=== PATIENT | female | born 2000 | race Caucasian/White ===

== ENCOUNTER 2024-09-28 11:49 | Inpatient (IN) ==
--- NOTE | 2024-09-28 12:21 | Emergency Department Note ---
History of Present Illness General Chief complaint: Leg Injury/Pain Stated complaint: NUMBNESS RT SIDE FROM FOOT TO GROIN Time Seen by Provider: 09/28/24 11:55 History of Present Illness Maximum Pain Intensity: 2 This is a 24-year-old female that presents to the emergency department via private vehicle with complaints of "right leg numbness". The patient states that last year she underwent L-spine discectomy. She has been doing overall well however does note for the past week and a half has intermittently been dragging her right foot/leg, is experiencing progressive right lower extremity numbness and weakness. She states that initially the numbness involved the foot and the right lower leg but now has progressed to involve much of the right leg over the past 24 hours. It extends from the right groin area all the way to the toes. She denies any recent trauma or injury. No fevers or chills. She does feel nauseated but there is no vomiting. No dysuria. The patient notes she was admitted here last month for low back pain and MRIs of the L-spine. She has had 2 MRIs of the L-spine at this facility last month. Most recent MRI dated 09/08/2024 showed Modic type I endplate degeneration at L4-L5 which had mildly improved compared to 08/22/2024 and also demonstrates reactive enhancement. There was also comment of large central disc extrusion at L4-L5 again seen unchanged from 08/22/2024 and decreased in size compared to 11/10/2023. Prior L4-L5 laminectomy noted. Home Medications Medication Instructions Recorded Confirmed Type levonorgestrel 21 mcg/24 hr (up to 21 mcg intrauterine CONTINOUS 11/10/23 09/28/24 History 8 years) 52 mg intrauterine device (Mirena) Allergies Allergy/AdvReac Type Severity Reaction Status Date / Time aspirin Allergy Severe Anaphylaxis Verified 09/28/24 15:56 NSAIDS (Non-Steroidal Allergy Severe Anaphylaxis Verified 09/28/24 15:56 Anti-Inflamma Past Med/Surg History Problem List (Updated 09/28/24 @ 17:05 by Mark Hall PA-C) Abnormal MRI, lumbar spine (Acute) Numbness of right lower extremity (Acute) Not currently (Acute) Medical History Lumbar disc disease Cauda equina syndrome Surgical History Hx of lumbar discectomy Social History Smoking Status: Never smoker Hx Alcohol Use: No Hx Substance Use: No Preferred Language: Icelandic Communication Ability: Effective Parking Technician Required: No Beliefs That Will Affect Care: None Current Living Situation: Alone Current Living Situation Comment: apartment Feels Safe at Home: Yes Assistive Devices: None Review of Systems A total of 10 systems reviewed and were otherwise negative Physical Exam Vital Signs Vital Signs - 24 hr 09/28/24 11:52 09/28/24 14:27 09/28/24 15:00 Temperature 36.7 C Temperature Source Temporal Artery Scan Pulse Rate 83 Pulse Rate [Finger] 62 68 Pulse Rhythm [Finger] Regular Pulse Strength [Finger] Normal Respiratory Rate 16 18 20 Respiratory Effort / Characteristics Non-Labored Spontaneous Non-Labored Spontaneous Respiratory Depth Normal Normal Respiratory Pattern Regular Blood Pressure 141/79 H Blood Pressure [Right Arm] 124/78 133/77 Blood Pressure Mean 99 Blood Pressure Mean [Right Arm] 93 95 Blood Pressure Position [Right Arm] Sitting Pulse Oximetry 98 97 97 Oxygen Delivery Method Room Air Room Air Room Air Sepsis Recent Fever Within 48 Hours No Sepsis New/Unexplained Change in Mental Status No Sepsis Action Taken by Nursing No Action Required 09/28/24 16:59 Temperature Temperature Source Pulse Rate Pulse Rate [Finger] 73 Pulse Rhythm [Finger] Pulse Strength [Finger] Respiratory Rate 16 Respiratory Effort / Characteristics Non-Labored Respiratory Depth Normal Respiratory Pattern Regular Blood Pressure Blood Pressure [Right Arm] 137/84 Blood Pressure Mean Blood Pressure Mean [Right Arm] 101 Blood Pressure Position [Right Arm] Sitting Pulse Oximetry 96 Oxygen Delivery Method Room Air Sepsis Recent Fever Within 48 Hours Sepsis New/Unexplained Change in Mental Status Sepsis Action Taken by Nursing VITAL SIGNS - Vital signs and nursing notes were reviewed. Stable and afebrile. GENERAL - 24-year-old female appearing her stated age who is in no acute distress. Communicates well with provider and answers questions appropriately. SKIN - Without rashes. HEAD - NC/AT. EYES - PERRL with EOMI bilaterally. Sclera anicteric. EARS - No deformities of external structures noted on gross examination bilaterally. NOSE - Midline and without cyanosis. No epistaxis or purulent drainage noted. MOUTH/OROPHARYNX - Without perioral cyanosis. NECK - Neck with FROM. No nuchal rigidity. LUNGS - CTA CARDIAC - RRR ABDOMEN - Abdominal contour normal without pulsations or visible masses. BS normoactive all four quadrants. No tenderness, palpable masses, hepatosplenomegaly, or ascites noted. EXTREMITIES - No clubbing or peripheral cyanosis. Right lower extremity strength diminished compared to the left. MUSCULOSKELETALthere is no reproducible tenderness overlying the C, T or L- spine or paraspinous musculature. There is a well-healed vertically oriented surgical incision overlying inferior L-spine. NEUROLOGIC - Cranial nerves II through XII grossly intact. Positive straight leg raise on the right. Negative on the left. Sensory intact to light touch throughout. No dropfoot. Patellar reflexes present but overall difficult to assess, no hyperreflexia. PSYCH -alert, oriented and pleasant on exam. Course Administered Medications Acetaminophen (Acetaminophen 325 Mg Tab) 650 mg PO QID [facility] Stop: 10/28/24 16:59 Last Admin: 09/28/24 16:55 Dose: 650 mg Documented By: NONA Pantoprazole Sodium (Pantoprazole 40 Mg Tab) 40 mg PO [facility] Stop: 10/28/24 16:44 Last Admin: 09/28/24 16:55 Dose: 40 mg Documented By: NONA Discontinued Medications Dexamethasone Sodium Phosphate (DexamethasonePf 10 Mg/Ml Vial) 10 mg IV NOW ONE Stop: 09/28/24 13:17 Last Admin: 09/28/24 13:26 Dose: 10 mg Documented By: [facility] Medical Decision Making Laboratory Data 09/28/24 12:32 09/28/24 12:32 Lab Results 09/28/24 09/28/24 Range/Units 12:32 12:38 WBC 7.71 (4.8-10.8) K/ul RBC 4.65 (4.20-5.40) M/uL Hgb 14.2 (12.0-16.0) g/dl Hct 42.2 (37.0-47.0) % MCV 90.8 (80.0-100.0) fL MCH 30.5 (25.0-34.0) pg MCHC 33.6 (32.0-36.0) g/dL RDW Std Deviation 44.1 (36.4-46.3) fL RDW Coeff of Tamar 13.2 (11.5-14.5) % Plt Count 302 (130-400) K/uL MPV 10.1 (9.4-12.4) fL Immature Gran % (Auto) 0.4 % Neut % (Auto) 68.0 % Lymph % (Auto) 21.3 % Wolfe % (Auto) 7.9 % Eos % (Auto) 1.9 % Baso % (Auto) 0.5 % Neut # (Auto) 5.24 (1.40-6.50) K/uL Lymph # (Auto) 1.64 (1.20-3.40) K/uL Wolfe # (Auto) 0.61 H (0.11-0.59) K/uL Eos # (Auto) 0.15 (0.00-0.50) K/uL Baso # (Auto) 0.04 (0.00-0.20) K/uL Immature Gran # (Auto) 0.03 (0.01-0.20) K/uL Sodium 140 (136-145) mmol/L Potassium 4.2 (3.5-5.1) mmol/L Chloride 105 (98-107) mmol/L Carbon Dioxide 27 (21-32) mmol/L Anion Gap 8 (3-11) BUN 23 (6-23) mg/dl Creatinine 0.57 L (0.6-1.2) mg/dl Est Cr Clr Drug Dosing 173.5 ml/min eGFR 130.87 BUN/Creatinine Ratio 40.4 H (10-20) Glucose 94 (70-99(Fasting)) mg/dl Calcium 9.4 (8.6-10.3) mg/dl Total Bilirubin 0.6 (0.2-1.0) mg/dl AST 18 (13-39) U/L ALT 19 (7-52) U/L Alkaline Phosphatase 50 (34-104) U/L Total Protein 7.5 (6.0-8.3) gm/dl Albumin 4.5 (3.4-5.0) gm/dl Globulin 3.0 (2.5-4.0) gm/dl Albumin/Globulin Ratio 1.5 (0.9-2) HCG, Qual Negative (Negative) Urine Color Yellow Urine Appearance Clear (Clear) Urine pH 6.0 (4.5-7.5) Ur Specific [place] 1.027 (1.000-1.030) Urine Protein Negative (Negative) Urine Glucose (UA) Negative (Negative) Urine Ketones Negative (Negative) Urine Blood Trace H (Negative) Urine Nitrite Negative (Negative) Urine Bilirubin Negative (Negative) Urine Urobilinogen Negative (Negative) Ur Leukocyte Esterase Negative (Negative) Urine WBC (Auto) 0-5 (0-5) /hpf Urine RBC (Auto) 0-2 (0-2) /hpf U Hyaline Cast (Auto) 0-2 (0-2) /lpf U Epithel Cells (Auto) 0-2 (0-2) /hpf Urine Bacteria (Auto) None Seen (None Seen) Urine Comment Imaging Data Radiologist's Impression: Lumbar Spine MRI 09/28/24 13:41 Lumbar spine MRI without IV contrast History: Back pain. Right lower extremity numbness and weakness Comparison: September 06, 2024 Technique: Sagittal T1-weighted, sagittal STIR, 3D volumetric axial and sagittal reconstructed T2-weighted images of the lumbar spine were obtained without intravenous contrast. Findings: There are 5 lumbar-type vertebrae assumed for the purposes of this dictation. The tip of the conus medullaris is at T12-L1. The lumbar alignment is normal. The vertebral body heights are normal. Redemonstrated Modic type I endplate degeneration at L4-L5. The visualized spinal cord and cauda equina are normal. No significant neuroforaminal or spinal canal stenosis at L1-2, L2-3, or L3-4. At L4-5, there is again mild intervertebral disc space narrowing and spondylotic spurring redemonstrated. Disc desiccation with circumferential annular disc bulge. Posterior annular fissure with large central disc extrusion redemonstrated has just slightly enlarged from the prior. However, the extradural space demonstrates significant further expansion into the spinal canal about the caudal aspect of the disc extrusion. This results in increased mass effect on the descending nerve roots, namely that of the right L5, as well as likely the S1 nerve roots. Minimal narrowing of the inferior neural foramen again seen along with mild narrowing of the lateral recesses. At L5-S1, there is again mild intervertebral disc space narrowing, with spondylotic spurring with small circumferential annular disc bulge/disc osteophyte complex which is eccentric to the left lateral recess and left neural foramen. No significant central canal or foraminal narrowing. IMPRESSION: The prominent right deviated disc extrusion at L4-5, with caudal extension is just slightly increased in size, however there is significant increase in expansion of the associated extradural space caudal to the area of disc extrusion, likely related to accumulation of reactive fluid and debris from disc material. This further expands into the spinal canal, with mass effect on the descending right sided nerve roots, namely that of L5 and S1. Electronically signed by Mode Ayon 09-28-2024 3:20 PM MDM Narrative Patient was seen and evaluated as above in room D03b. Review was performed of triage nursing notes and vital signs. I did review pertinent previous visits and patient history. After obtaining a thorough history and physical examination the above work up was performed. Patient presents to us today for evaluation of right leg numbness. On my assessment she is able to stand, axial load and ambulate independently. The patient does have intact patellar reflexes. The patient subjectively notes intermittently she has been dragging the right leg but on examination there is no active dragging of the leg. There is no evidence of dropfoot at this time. The patient does have some decreased strength on the right but only mildly diminished compared to the left. She is sensory intact light touch throughout the right lower extremity without sensation deficit. She has a benign abdomen. There is no back pain. Patellar reflexes are present. No hyperreflexia. Per review of the EMR it does appear the patient was admitted October of last year and ultimately underwent L-spine surgery for cauda equina syndrome/herniated nucleus pulposus at L4-L5. I did review the patient's 2 recent MRIs as stated last month. Patient does have a history of L-spine surgery last year. The patient does follow with Dr. Velasco's spine team. 12:35 PMI spoke with Vishal medley PA-C regarding the patient. We discusssed steroids and we agreed to IV Decadron here x 1, Medrol Dosepak and discussed plan for follow-up with pain management and for the patient to call the spine office to follow-up as well. I did obtain laboratory studies here. There is no leukocytosis or concerning anemia. No emergent metabolic disturbance. There is elevation of the BUN/creatinine ratio at 40. No evidence of kidney failure. hCG negative. Urinalysis does not suggest infection. [id number] did recommend rectal examination to assess rectal tone in the setting of the patient's history and symptoms as listed above. Verbal consent was obtained and I reviewed benefit versus risk of rectal exam with the patient. Patient gave verbal consent to proceed. Dagmar Meraz RN present at bedside. Rectal tone intact. No hemorrhoids. No complications. 1340-I discussed imaging options with the patient. Although she has had 2 MRIs as of recent, I did consider repeat MRI with the patient now noting new onset of progressive right lower extremity weakness, numbness and intermittently dragging the right leg per patient. Patient does desire MRI of the L-spine. Patient also notes that although simple short distance walked around a problem, any longer walks she does feel unsteady on the feet. Postvoid residual assessed and 3 mL noted. No concerning retention at this time MRI results are as above. There is comment that the disc just slightly increased in size however significant increase in expansion of the associated extradural space caudal to the area of disc extrusion, likely due to accumulation of reactive fluid and debris from disc material per radiologist. This further expands in the spinal canal, with mass effect on the descending right nerve roots namely that of L5 and S1 which does fit with the patient's presentation today. Although she did have spinal injection recently, I do not suspect any complications with the injection. The patient does not endorse any infectious symptoms. I further discussed the case with BREANNA Rodgers at 1601. We discussed the patient's exam and history again and also imaging today. Plan at this time will be medicine admit, orthopedic consult and potential pain consult. We discussed that she may have to be steroid doses total. Such as 8 mg and 8mg of dexamethasone. She has already had one, 10mg dose here today. At this time I do believe that further evaluation and management in the inpatient setting is warranted. Case discussed with hospitalist service. Please refer to further documentation regarding her stay. GCS: 15 In the evaluation and treatment of this patient the following differential diagnosis entertained: Fracture, dislocation, subluxation, cauda equina syndrome, AAA, diverticulitis, appendicitis, torsion, osteomyelitis, piriformis syndrome, strain, sprain, among others. Impression & Plan Numbness of right lower extremity, Abnormal MRI, lumbar spine Discharge Plan Visit Data Chief Complaint: Leg Injury/Pain Stated Complaint: NUMBNESS RT SIDE FROM FOOT TO GROIN ED Provider: Tegan Cisse ED Midlevel Provider: Mark Hall Discharge Problem: Numbness of right lower extremity, Abnormal MRI, lumbar spine Patient Disposition: Admitted As Inpatient Condition: Good Forms Stand Alone Forms: [facility] epicurio [facility] Prescriptions Prescriptions: No Action Mirena 21 mcg/24 hr (8 yrs) 52 mg Intrauterine Device 21 mcg intrauterine CONTINOUS Referrals Referrals: Dinesh Velasco DO [Primary Care Provider] -
[2024-09-28 12:45] LABS: Hematocrit (blood only) 42.2 % (37.0-47.0); Hemoglobin 14.2 g/dl (12.0-16.0); Immature Granulocytes # (auto) 0.03 K/uL (0.01-0.20); Immature Granulocytes % (auto) 0.4 %; Mean Corpuscular Hemoglobin 30.5 pg (25.0-34.0); Mean Corpuscular Volume 90.8 fL (80.0-100.0); Platelet Count 302 K/uL (130-400); RDW Standard Deviation 44.1 fL (36.4-46.3); Red Blood Count 4.65 M/uL (4.20-5.40); White Blood Count 7.71 K/ul (4.8-10.8)
[2024-09-28 12:47] LABS: Appearance Urine Clear (Clear); Bacteria Urine Automated None Seen (None Seen); Cast Urine Automated 0-2 /lpf (0-2); Epithelial Cell Urine Auto 0-2 /hpf (0-2); Glucose Urine UA Negative (Negative); RBC Urine Automated 0-2 /hpf (0-2); WBC Urine Automated 0-5 /hpf (0-5)
[2024-09-28 13:00] LABS: Pregnancy Test, Serum Negative (Negative)
[2024-09-28 13:02] LABS: Alanine Aminotransferase 19.0 U/L (7-52); Albumin Globulin Ratio 1.5 (0.9-2); Alkaline Phosphatase 50.0 U/L (34-104); Anion Gap 8.0 (3-11); Bilirubin,Total 0.6 mg/dl (0.2-1.0); Blood Urea Nitrogen 23.0 mg/dl (6-23); Calcium 9.4 mg/dl (8.6-10.3); Carbon Dioxide 27.0 mmol/L (21-32); Chloride 105.0 mmol/L (98-107); Creatinine Clr Calc Pharmacy 173.5 ml/min; Globulin 3.0 gm/dl (2.5-4.0); Glucose 94.0 mg/dl (70-99(Fasting)); Potassium 4.2 mmol/L (3.5-5.1); Sodium 140.0 mmol/L (136-145); Total Protein 7.5 gm/dl (6.0-8.3)
[2024-09-28] MEDS: dexAMETHasone**PF** 10 MG/ML VIAL IV ONE (13:26)
--- NOTE | 2024-09-28 15:20 | Magnetic Resonance Report ---
Lumbar spine MRI without IV contrast History: Back pain. Right lower extremity numbness and weakness Comparison: September 06, 2024 Technique: Sagittal T1-weighted, sagittal STIR, 3D volumetric axial and sagittal reconstructed T2-weighted images of the lumbar spine were obtained without intravenous contrast. Findings: There are 5 lumbar-type vertebrae assumed for the purposes of this dictation. The tip of the conus medullaris is at T12-L1. The lumbar alignment is normal. The vertebral body heights are normal. Redemonstrated Modic type I endplate degeneration at L4-L5. The visualized spinal cord and cauda equina are normal. No significant neuroforaminal or spinal canal stenosis at L1-2, L2-3, or L3-4. At L4-5, there is again mild intervertebral disc space narrowing and spondylotic spurring redemonstrated. Disc desiccation with circumferential annular disc bulge. Posterior annular fissure with large central disc extrusion redemonstrated has just slightly enlarged from the prior. However, the extradural space demonstrates significant further expansion into the spinal canal about the caudal aspect of the disc extrusion. This results in increased mass effect on the descending nerve roots, namely that of the right L5, as well as likely the S1 nerve roots. Minimal narrowing of the inferior neural foramen again seen along with mild narrowing of the lateral recesses. At L5-S1, there is again mild intervertebral disc space narrowing, with spondylotic spurring with small circumferential annular disc bulge/disc osteophyte complex which is eccentric to the left lateral recess and left neural foramen. No significant central canal or foraminal narrowing. IMPRESSION: The prominent right deviated disc extrusion at L4-5, with caudal extension is just slightly increased in size, however there is significant increase in expansion of the associated extradural space caudal to the area of disc extrusion, likely related to accumulation of reactive fluid and debris from disc material. This further expands into the spinal canal, with mass effect on the descending right sided nerve roots, namely that of L5 and S1. Electronically signed by Mode Ayon 09-28-2024 3:20 PM
[2024-09-28] MEDS ORDERED: HYDROmorphone INJ 0.5 MG/0.5 ML SYR IV PRN (16:39)
[2024-09-28] MEDS: ACETAMINOPHEN 325 MG TAB PO SCH (16:55)
[2024-09-28] MEDS: dexAMETHasone 10 MG in SYRINGE 0 ML IV SCH (20:11)
[2024-09-28] MEDS ORDERED: DEXAMETHASONE SOD INJ 4 MG/ML VIAL IV SCH (21:00)
--- NOTE | 2024-09-28 22:38 | History & Physical Report ---
Date of Service September 28, 2024 Assessment & Plan (1) Recurrent herniation of lumbar disc: Plan: Admit to medical for pain control. WIll consult ortho spine and pain management. Discussed with ortho spine will keep patient on a diet for now. WIll place on narcotics, tylenol and steroids. PPI for GI prophylaxis. Admission and Anticipated Discharge Date Admission Date: September 28, 2024 History of Present Illness Chief Complaint: back pain Primary Care Provider: Dinesh Velasco DO 24-year-old female PMHx cauda equina syndrome who presents for acute worsening of back pain with associatedright leg numbnessfor past 10 days. States that October 2023 she had a discectomy because she was having significant back pain that required intervention. Patient was recently discharged from the hospital in August for similar symptoms with steroid taper and injections. With plan to do surgery if above plna does not work. Patient reports that symptoms have not improved. Of note, 2 MRIs of the L-spine were completed at this facility last month. MRI dated 09/08/2024 showed Modic type I endplate degeneration at L4-L5 which had mildly improved compared to 08/22/2024 and also demonstrated reactive enhancement. There was also comment of large central disc extrusion at L4-L5 again seen unchanged from 08/22/2024 and decreased in size compared to 11/10/2023. Prior L4- L5 laminectomy noted. Allergies Allergy/AdvReac Type Severity Reaction Status Date / Time aspirin Allergy Severe Anaphylaxis Verified 09/28/24 15:56 NSAIDS (Non-Steroidal Allergy Severe Anaphylaxis Verified 09/28/24 15:56 Anti-Inflamma Home Medications Medication Instructions Recorded Confirmed Type levonorgestrel 21 mcg/24 hr (up to 21 mcg intrauterine CONTINOUS 11/10/23 09/28/24 History 8 years) 52 mg intrauterine device (Mirena) Past Med/Surg History Problem List Recurrent herniation of lumbar disc Abnormal MRI, lumbar spine (Acute) Numbness of right lower extremity (Acute) Not currently (Acute) Medical History Opioid-induced constipation Acute on chronic back pain Lumbar disc disease Cauda equina syndrome Social History Smoking Status: Never smoker Do You Dip or Chew Tobacco: No; Hx Alcohol Use: No Hx Substance Use: No Preferred Language: Malian Communication Ability: Effective Organ Tuner Electronic Required: No Beliefs That Will Affect Care: None Current Living Situation: Other Current Living Situation Comment: apartment Other Information That Helps Us Care for You: No Feels Safe at Home: Yes Safety Concerns: Feels Safe At This Time Assistive Devices: Glasses Review of Systems Constitutional: no fever and no body aches Eyes: no blind spots Ear, Nose, Mouth, Throat: no ear pain Respiratory: no cough Cardiovascular: no chest pain Gastrointestinal: no abdominal pain Genitourinary: no dysuria Musculoskeletal: + back pain Integumentary: no acne Neurologic: + paresthesia Psychiatric: no behavioral changes Endocrine: no fatigue Hematologic / Lymphatic: no easy bleeding Allergy / Immunological: no GI upset with certain foods Physical Exam Constitutional: WD/WN, vitals as above Eyes: PERRL, conjunctivae normal, anicteric sclerae ENMT: external ear and nose normal, oropharynx normal Neck: trachea midline, no thyromegaly Respiratory: normal respiratory effort, lungs clear to auscultation Cardiovascular: RRR, no murmur, no edema Gastrointestinal (Abdomen): normal bowel sounds, soft, nontender, no hepatosplenomegaly Musculoskeletal: no cyanosis or clubbing, extremities motor strength 5/5 Skin: no rashes, warm and dry Neurologic: PERRL, EOMI, accommodation nl, no face palsy, no dysarthria Psychiatric: A+Ox3, euthymic affect Lymphatic: no cervical or axillary lymphadenopathy Results & Data Results & Data Vital Signs (Past 12 Hours) Vital Signs Temp Pulse Pulse Resp BP BP Pulse Ox 09/28/24 19:24 36.6 C 85 16 136/84 96 09/28/24 17:47 70 20 139/80 98 09/28/24 17:22 63 09/28/24 16:59 73 16 137/84 96 09/28/24 15:00 68 20 133/77 97 09/28/24 14:27 62 18 124/78 97 09/28/24 11:52 36.7 C 83 16 141/79 H 98 O2 Del Method 09/28/24 19:24 Room Air 09/28/24 17:47 09/28/24 17:22 09/28/24 16:59 Room Air 09/28/24 15:00 Room Air 09/28/24 14:27 Room Air 09/28/24 11:52 Room Air PG Care Time/CCT Total # of Minutes Spent Total Time Spent with Patient: Total time spent is greater than 50% in coordination of care (as documented) at patient's floor/unit and/or counseling patient: Coding Level of Care Code 94439 INT INP/OBS CARE 3/75MIN Diagnoses Recurrent herniation of lumbar disc M51.26
[2024-09-29] MEDS: ONDANSETRON INJ 2 MG/ML 2 ML VIAL IV PRN (04:12)
--- NOTE | 2024-09-29 06:55 | Orthopedic Consultation ---
Date of Service September 29, 2024 Assessment & Plan (1) Recurrent herniation of lumbar disc: (2) Abnormal MRI, lumbar spine: (3) Numbness of right lower extremity: History of Present Illness Reason for Consultation: Low back pain, right leg radiculopathy, lumbar disc herniation. Requesting Physician: . Attending Physician: Jhony Lind 24-year-old female that presents to the emergency department September 28, 2024 via private vehicle with complaints of "right leg numbness". The patient states that last year she underwent L-spine discectomy. She has been doing overall well however does note for the past week and a half has intermittently been dragging her right foot/leg, is experiencing progressive right lower extremity numbness and weakness. She states that initially the numbness involved the foot and the right lower leg but now has progressed to involve much of the right leg over the past 24 hours. It extends from the right groin area all the way to the toes. She denies any recent trauma or injury. No fevers or chills. She does feel nauseated but there is no vomiting. No dysuria. The patient notes she was admitted here last month for low back pain and MRIs of the L-spine. She has had 2 MRIs of the L-spine at this facility last month. Most recent MRI dated 09/08/2024 showed Modic type I endplate degeneration at L4-L5 which had mildly improved compared to 08/22/2024 and also demonstrates reactive enhancement. There was also comment of large central disc extrusion at L4-L5 again seen unchanged from 08/22/2024 and decreased in size compared to 11/10/2023. Prior L4-L5 laminectomy noted. Exam reveals the patient to indicate pain in the lower lumbar spine but main symptoms are in right leg. She has intact strength in the left leg with what I thought was appropriate strength for EHL ankle plantar dorsiflexion knee extension, some pain in the low back with straight leg raise. Right leg reveals the patient to have EHL at least in the 4-4+ range on the right, similar for dorsiflexion and plantarflexion in the 5/5 range, knee extension is also at least 4-4+ but causes leg pain with trying to straighten the leg completely at the knee. Lumbar spine MRI without IV contrast September 28, 2024 History: Back pain. Right lower extremity numbness and weakness Comparison: September 06, 2024 Findings: There are 5 lumbar-type vertebrae assumed for the purposes of this dictation. The tip of the conus medullaris is at T12-L1. The lumbar alignment is normal. The vertebral body heights are normal. Redemonstrated Modic type I endplate degeneration at L4-L5. The visualized spinal cord and cauda equina are normal. No significant neuroforaminal or spinal canal stenosis at L1-2, L2-3, or L3-4. At L4-5, there is again mild intervertebral disc space narrowing and spondylotic spurring redemonstrated. Disc desiccation with circumferential annular disc bulge. Posterior annular fissure with large central disc extrusion redemonstrated has just slightly enlarged from the prior. However, the extradural space demonstrates significant further expansion into the spinal steve l about the caudal aspect of the disc extrusion. This results increased mass effect on the descending nerve roots, namely that of the right L5, as well as likely the S1 nerve roots. Minimal narrowing of the inferior neural foramen again seen along with mild narrowing of the lateral recesses. At L5-S1, there is again mild intervertebral disc space narrowing, with spondylotic spurring with small circumferential annular disc bulge/disc osteophyte complex which is eccentric to the left lateral recess and left neural foramen. No significant central canal or foraminal narrowing. IMPRESSION: The prominent right deviated disc extrusion at L4-5, with caudal extension is just slightly increased in size, however there is significant increase in expansion of the associated extradural space caudal to the area of disc extrusion, likely related to accumulation of reactive fluid and debris from disc material. This further expands into the spinal canal, with mass effect on the descending right sided nerve roots, namely that of L5 and S1. Above listed MRI was reviewed of the lumbar spine on September 28, 2024, is my separate interpretation, this reveals the patient to have the main findings at L4-5 where there is evidence of prior laminectomy, there is a central disc protrusion which is similar to the disc protrusion noted on the MRI from September 06, 2024, but now with an extruded fragment and some enlargement of the central fragment on the right side. There is notable loss of disc base height at the L4-5 level, of note is L5-S1 as loss of signal intensity, some loss of height and a central disc bulge but not causing any significant contact to the nerve roots. L3-4 and above are unremarkable. Radiographs of the lumbar spine from August 22, 2024 reveal the patient to have notable loss of height and loss of lordosis at the L4-5 level. Impression: L4-5 level status post prior L4-5 lumbar discectomy and decompression for cauda equina syndrome from November 10, 2023, now with recurrent disc herniation centrally into the right at L4-5, some additional findings at the L5-S1 level relative to degenerative changes. Plan: Today I discussed with the patient the nature of the disc herniation and the symptoms that she is having, there has been some limited improvement with appropriate medications, patient does have active motor in the right lower extremity. I related the patient that my recommendations are that any subsequent surgery would involve removal of the fragment and fusion at that level as I do not think it would an option of just doing a discectomy maintaining stability at this level. The patient had a prior surgery working with Dr. Velasco and recently had been in the hospital a month ago for similar symptoms, she responded very well to a epidural injection by Dr. Snyder on August 26, 2024 doing quite well until this recent flareup over the last week and a half. The patient expressed interest in discussing her situation with Dr. Velasco. Patient works as a photographer model I did relate she would be limited in her activities until this is addressed surgically, she was in agreement with this plan. Allergies Allergy/AdvReac Type Severity Reaction Status Date / Time aspirin Allergy Severe Anaphylaxis Verified 09/28/24 15:56 NSAIDS (Non-Steroidal Allergy Severe Anaphylaxis Verified 09/28/24 15:56 Anti-Inflamma Home Medications Medication Instructions Recorded Confirmed Type levonorgestrel 21 mcg/24 hr (up to 21 mcg intrauterine CONTINOUS 11/10/23 09/28/24 History 8 years) 52 mg intrauterine device (Mirena) Past Med/Surg History Problem List (Updated 09/29/24 @ 07:16 by Eduardo Jauregui MD) Recurrent herniation of lumbar disc Abnormal MRI, lumbar spine (Acute) Numbness of right lower extremity (Acute) Not currently (Acute) Medical History Lumbar disc disease Cauda equina syndrome Surgical History Hx of lumbar discectomy Social History Smoking Status: Never smoker Do You Dip or Chew Tobacco: No; Hx Alcohol Use: No Hx Substance Use: No Preferred Language: Thai Communication Ability: Effective Supervisor Operations Required: No Beliefs That Will Affect Care: None Current Living Situation: Other Current Living Situation Comment: apartment Other Information That Helps Us Care for You: No Feels Safe at Home: Yes Safety Concerns: Feels Safe At This Time Assistive Devices: Glasses Review of Systems All systems reviewed & are unremarkable except as noted in HPI & below. Physical Exam . Results & Data Results & Data Laboratory Results . Diagnostic Findings . PG Care Time/CCT Total # of Minutes Spent Total Time Spent with Patient: Total time spent is greater than 50% in coordination of care (as documented) at patient's floor/unit and/or counseling patient: Coding Level of Care Code 11382 IN/OBS CONSULT LVL 4,60M Diagnoses Recurrent herniation of lumbar disc M51.26 Abnormal MRI, lumbar spine R93.7 Numbness of right lower extremity R20.0
--- NOTE | 2024-09-29 09:50 | Orthopedic Consultation ---
Date of Consultation September 29, 2024 Assessment & Plan (1) Recurrent herniation of lumbar disc: Assessment recurrent disc herniation L4-L5 with radiculopathy and progressive neurologic deficit. Plan at this time and lengthy discussion today with the patient and her family reviewing MRI imaging and clinical course. At this time she demonstrates acute on chronic disc herniation L4-L5 with Modic disease. We have attempted a course of injections but she continues to have issues now with recurrent disc herniation. In light of her presentation neurologic deficit and history of it is reasonable to consider surgical invention. Would require a revision decompression and fusion L4-L5. Risk benefits pros cons and alternatives in detail. This time she would like to surgery. Will make her n.p.o. after midnight and plan for surgery tomorrow. History of Present Illness Reason for Consultation: Back right leg pain Attending Physician: Jhony Lind History of Present Illness This is a 24-year-old female well-known to me the presents with a decline in status over the past several days. She does have a history of a previous decompression for cauda equina syndrome at L4-L5. She has had recurrent disc protrusion at this level and has been undergoing therapy and epidural injections. Unfortunately symptoms have returned to involve predominantly the right lower extremity. She has significant back pain rating of the right buttock posterior lateral thigh down into the foot. She notes breakaway weakness to the right leg. Allergies Allergy/AdvReac Type Severity Reaction Status Date / Time aspirin Allergy Severe Anaphylaxis Verified 09/28/24 15:56 NSAIDS (Non-Steroidal Allergy Severe Anaphylaxis Verified 09/28/24 15:56 Anti-Inflamma Home Medications Medication Instructions Recorded Confirmed Type levonorgestrel 21 mcg/24 hr (up to 21 mcg intrauterine CONTINOUS 11/10/23 09/28/24 History 8 years) 52 mg intrauterine device (Mirena) Patient History Medical History Opioid-induced constipation Acute on chronic back pain Lumbar disc disease Cauda equina syndrome Social History Smoking Status: Never smoker Do You Dip or Chew Tobacco: No; Hx Alcohol Use: No Hx Substance Use: No Preferred Language: Nauruan Communication Ability: Effective Binding Machine Operator Required: No Beliefs That Will Affect Care: None Current Living Situation: Other Current Living Situation Comment: apartment Other Information That Helps Us Care for You: No Feels Safe at Home: Yes Safety Concerns: Feels Safe At This Time Assistive Devices: Glasses Physical Exam Physical Exam: On exam she does exhibit strength deficits to the right lower extremity with dorsiflexion extensor houses longus. She is at 5 or 5 strength in left lower extremity. There is marked tension signs with straight leg raising on the right with sensory deficits. Deep and reflexes diminished. Results & Data Vital Signs (Past 12 Hours) Vital Signs Temp Pulse Resp BP Pulse Ox O2 Del Method 09/29/24 07:08 36.6 C 62 16 131/75 99 Room Air
[2024-09-29 10:45] LABS: Hematocrit (blood only) 43.3 % (37.0-47.0); Hemoglobin 14.8 g/dl (12.0-16.0); Mean Corpuscular Hemoglobin 30.2 pg (25.0-34.0); Mean Corpuscular Volume 88.4 fL (80.0-100.0); Platelet Count 351 K/uL (130-400); RDW Standard Deviation 42.1 fL (36.4-46.3); Red Blood Count 4.90 M/uL (4.20-5.40); White Blood Count 14.90 K/ul (4.8-10.8)
[2024-09-29 11:01] LABS: Anion Gap 9.0 (3-11); Blood Urea Nitrogen 14.0 mg/dl (6-23); Calcium 9.5 mg/dl (8.6-10.3); Carbon Dioxide 23.0 mmol/L (21-32); Chloride 103.0 mmol/L (98-107); Creatinine Clr Calc Pharmacy 167.6 ml/min; Glucose 206.0 mg/dl (70-99(Fasting)); Potassium 3.7 mmol/L (3.5-5.1); Sodium 135.0 mmol/L (136-145)
[2024-09-29 11:10] LABS: Immature Granulocytes # (auto) 0.09 K/uL (0.01-0.20); Immature Granulocytes % (auto) 0.6 %
--- NOTE | 2024-09-29 12:24 | Pain Management Consultation ---
Date of Consultation September 29, 2024 Assessment & Plan (1) Recurrent herniation of lumbar disc: Pt planned for OR tomorrow with Dr. Velasco. Please reconsult should pain mgt services be requested. thank you History of Present Illness Attending Physician: Jhony Lind Allergies Allergy/AdvReac Type Severity Reaction Status Date / Time aspirin Allergy Severe Anaphylaxis Verified 09/28/24 15:56 NSAIDS (Non-Steroidal Allergy Severe Anaphylaxis Verified 09/28/24 15:56 Anti-Inflamma Home Medications Medication Instructions Recorded Confirmed Type levonorgestrel 21 mcg/24 hr (up to 21 mcg intrauterine CONTINOUS 11/10/23 09/28/24 History 8 years) 52 mg intrauterine device (Mirena) Patient History Medical History Opioid-induced constipation Acute on chronic back pain Lumbar disc disease Cauda equina syndrome Social History Smoking Status: Never smoker Do You Dip or Chew Tobacco: No; Hx Alcohol Use: No Hx Substance Use: No Preferred Language: Indian Communication Ability: Effective Lockstitch Topstitcher Required: No Beliefs That Will Affect Care: None Current Living Situation: Other Current Living Situation Comment: apartment Other Information That Helps Us Care for You: No Feels Safe at Home: Yes Safety Concerns: Feels Safe At This Time Assistive Devices: None
--- NOTE | 2024-09-29 22:45 | Communication Note ---
Date of Service: September 29, 2024 Orthopedic Spine service will assume primary management of this case. Patient is medically stable with no active medical issues requiring hospitalist involvement at this time. Hospitalist service will sign off.
--- NOTE | 2024-09-30 13:10 | History & Physical Bridge Note ---
Date of Service September 30, 2024 History & Physical Bridge Note I have examined the patient, reviewed the History & Physical and in the interval since the performance of the History & Physical I have noted the following changes of clinical significance: no changes noted patient has severe right leg pain that has been quite progressive over the past several months and now intolerable in nature. She has evidence of an acute on chronic disc herniation at L4-L5. We have attempted to manage this nonoperatively for several months including a course of injections that has failed. She now has significant pain requiring IV steroids and narcotic medications to control her symptoms. She is markedly limited with her ability to stand and ambulate secondary to her radiculopathy. To prevent permanent neurologic deficit and loss of function and recommending emergent decompression fusion L4-L5
[2024-09-30] MEDS ORDERED: PROPOFOL IV EMULSION 10 MG/ML 20 ML VIAL IV ONE ×3 (14:54→16:18)
[2024-09-30] MEDS ORDERED: LIDOCAINE 2% 2 ML VIAL/AMP(20MG/ML) INFIL ONE (14:54)
[2024-09-30] MEDS ORDERED: DEXAMETHASONE SOD INJ 4 MG/ML VIAL ONE (14:54)
[2024-09-30] MEDS ORDERED: ROCURONIUM BROMIDE 10 MG/ML 5 ML VIAL IV ONE ×2 (14:54→16:28)
[2024-09-30] MEDS ORDERED: ONDANSETRON INJ 2 MG/ML 2 ML VIAL ONE (14:54)
[2024-09-30] MEDS ORDERED: HYDROmorphone INJ 1 MG/ML SYRINGE IV PRN (15:19)
[2024-09-30] MEDS ORDERED: ATROPINE SULFATE 0.1 MG/ML 10ML SYR IV PRN (15:19)
--- NOTE | 2024-09-30 15:19 | Anesthesiology Consultation ---
Date of Service September 30, 2024 Assessment & Plan ASA ASA3 Proposed Anesthesia Anesthesia Type: General Risk / Benefits Reviewed With: PT / POA / Parent / Guardian, Accepts Plan and Informed Consent Obtained History Surgery Operation Date: 09/30/24 07:00 Proposed Procedures p L4-L5 Decompression and Fusion - Dinesh Velasco DO Height/Weight Height: 5 ft 6 in Weight: 90 kg Allergies Allergy/AdvReac Type Severity Reaction Status Date / Time aspirin Allergy Severe Anaphylaxis Verified 09/28/24 15:56 NSAIDS (Non-Steroidal Allergy Severe Anaphylaxis Verified 09/28/24 15:56 Anti-Inflamma Medications Home Medications Medication Instructions Recorded Confirmed Last Taken levonorgestrel 21 mcg/24 hr (up to 21 mcg intrauterine CONTINOUS 11/10/23 09/28/24 Unknown 8 years) 52 mg intrauterine device (Mirena) Active Medications Generic Name Dose Route Start Last Admin Trade Name Freq PRN Reason Stop Dose Admin Acetaminophen 650 mg 09/28/24 17:00 09/30/24 13:40 Acetaminophen 325 Mg Tab PO 10/28/24 16:59 Not Given QID MARGARITA Dexamethasone 10 mg/ Syringe 2.5 mls @ 1 mls/min 09/28/24 21:00 09/30/24 09:01 IV 10/28/24 20:59 1 mls/min BID MARGARITA Administration Ondansetron HCl 4 mg 09/29/24 03:51 09/30/24 09:04 Ondansetron Inj 2 Mg/Ml 2 Ml Vial IV 10/29/24 03:50 4 mg Q6H PRN Administration Nausea And Vomiting Pantoprazole Sodium 40 mg 09/28/24 16:45 09/30/24 09:01 Pantoprazole 40 Mg Tab PO 10/28/24 16:44 40 mg QAM MARGARITA Administration NPO Date Last Intake of Fluids: 09/29/24 Time Last Intake of Fluids: 23:59 Date Last Intake of Solids: 09/29/24 Time Last Intake of Solids: 19:00 Past Medical History Medical History Opioid-induced constipation Acute on chronic back pain Lumbar disc disease Cauda equina syndrome Exercise / Class Metabolic Activity II 4-5 Yardwork/Stairs/Walk up hill Past Anesthesia History No Hx of Anesthesia Complications and No Family Hx of Anesthesia Complications History of PONV No Hx of PONV and No Hx of Motion Sickness Social History Smoking Status: Never smoker Do You Dip or Chew Tobacco: No Hx Alcohol Use: No alcohol intake frequency: holidays/special occasions only Hx Substance Use: No substance use type: does not use Review of Systems denies fever/cough/ colds/ chest pain/ SOB/ SANIYA denies SANIYA Physical Exam Vital Signs Last Vital Signs Temp 36.9 C 09/30/24 14:35 Pulse 72 09/30/24 14:35 Resp 18 09/30/24 14:35 BP 141/75 H 09/30/24 14:35 Pulse Ox 98 09/30/24 14:35 O2 Del Method Room Air 09/30/24 14:35 ENMT Mouth: no TMJ abnormality and no dentition abnormality Thyromental Distance: > or= 3.5 Finger Breadths Mallampati Class: II Neck neck extension not limited Respiratory normal respiratory effort; no respiratory distress Auscultation: lungs clear to auscultation bilaterally Cardiovascular Rate/Rhythm: regular rate and regular rhythm Neurologic moves all extremities Psychiatric Orientation: alert and oriented x 3 Testing Laboratory Results 09/29/24 09:58 09/29/24 09:58 Urine Color Yellow 09/28/24 12:38 Urine Appearance Clear (Clear) 09/28/24 12:38 Urine pH 6.0 (4.5-7.5) 09/28/24 12:38 Ur Specific [place] 1.027 (1.000-1.030) 09/28/24 12:38 Urine Protein Negative (Negative) 09/28/24 12:38 Urine Glucose (UA) Negative (Negative) 09/28/24 12:38 Urine Ketones Negative (Negative) 09/28/24 12:38 Urine Nitrite Negative (Negative) 09/28/24 12:38 Ur Leukocyte Esterase Negative (Negative) 09/28/24 12:38 Urine WBC (Auto) 0-5 /hpf (0-5) 09/28/24 12:38 Urine RBC (Auto) 0-2 /hpf (0-2) 09/28/24 12:38 U Hyaline Cast (Auto) 0-2 /lpf (0-2) 09/28/24 12:38 U Epithel Cells (Auto) 0-2 /hpf (0-2) 09/28/24 12:38 Urine Bacteria (Auto) None Seen (None Seen) 09/28/24 12:38 Urine Test Negative (Negative) 09/30/24 07:20 Blood Type O Positive 09/30/24 06:16 Antibody Screen NEGATIVE 09/30/24 06:16 09/30/24 07:20 Urine Test Negative
[2024-09-30] MEDS ORDERED: MIDAZOLAM HCL 1 MG/ML 2ML VIAL ONE (15:48)
[2024-09-30] MEDS: BUPIVACAINE/EPINEPHRINE 0.25% 1:200,000 30 ML VIAL ONE (16:27)
[2024-09-30] MEDS: ceFAZolin 330 MG/ML 1 GM VIAL ONE (17:15)
[2024-09-30] MEDS ORDERED: SUGAMMADEX SODIUM 200 MG/2 ML VIAL IV ONE (17:16)
[2024-09-30] MEDS: FLOSEAL HEMOSTATIC MATRIX 10ML TOP ONE (17:17)
[2024-09-30] MEDS ORDERED: HYDROmorphone INJ 2 MG/ML SYR/VIAL ONE (17:27)
--- NOTE | 2024-09-30 17:30 | Operative Report ---
Post Operative Report Pre & Post Diagnosis Operation Date: 09/30/24 07:00 Pre-Op Diagnosis: #1 recurrent herniation of lumbar disc with radiculopathy Post-Op Diagnosis: Same I identified the patient and participated in the time-out.: Yes Procedure Operation Date: 09/30/24 07:00 Actual Procedures #1 revision decompression with bilateral medial facetectomies and foraminotomies and excision of herniated free fragment L4-L5. #2 posterior spinal fusion L4- L5. #3 placement posterior instrumentation L4-L5 using camber. #4 interbody fusion L4-L5 and #[address] Place of Spira 13 x 26 mm and L4 5P #6 placement locally harvested morselized autograft in the posterior gutters. #7 placement infuse collagen sponge combined with Koros in the posterior lateral gutters and os design interbody space. #8 application of versa wrap of the exposed dura. Surgeon Dinesh Velasco, Financial Accounting Manager Martha Blackmon Estimated Blood Loss 30 Findings Consistent with Post-Op Diagnosis Specimens None Indications This is a 24-year-old female that presents with the above-mentioned diagnosis. Patient has declined rapidly over the past several days has had progressive neurologic deficit weakness requiring IV narcotics and steroids to control her pain. Subsequently she is here for surgical intervention. Description of Procedure Patient was met with identified informed consent obtained. Patient was then taken to the operative suite underwent intubation placed in a prone position on the Matt table top of the Sampson frame. All bony prominences well-padded eyes inspected to ensure no external pressure placed upon them. This point the lumbar spine was prepped and draped in normal sterile fashion. Sharp dissection with the assistance of Bovie cautery performed down to and exposing the remaining lamina of L4 and the transverse processes of L4-L5 bilaterally. I then performed a revision complete laminectomy of L4 with bilateral medial facetectomies and foraminotomies. Identified a massive disc herniation on the right with caudal migration. The free fragment was removed and the area expl ored several times to ensure all fragments addressed. Pedicle screws were then placed in L4-L5 bilaterally with assistance of fluoroscopy and the process carlota placed. By way of the trans foraminal approach on the right and complete discectomy at the L4-L5 was performed. Endplates corrected to subcortical bleeding bone and a 13 x 26 mm spiral cage filled with os design bone graft tapped in position. The rods were then compressed locked into final position bilaterally. The transverse processes of L4-L5 burred to subcortical bleeding bone. Infuse collagen sponge, with Koros and local autograft placed in the posterior gutters. First wrap placed over the exposed dura. 15 round ARTEM drain inserted. The incision was then closed with 1 Vicryl in the fascia 2-0 Vicryl subcutaneously and 4-0 Monocryl for final skin closure. Steri-Strips sterile dressing placed. Patient waken taken PACU stable condition. Please note Martha Blackmon was present at the entire procedure involved the patient positioning complex portion of the surgery and final skin closure. I attest to the content of the Intraoperative Record and any orders documented therein. Any exceptions are noted below.
--- NOTE | 2024-09-30 18:06 | Anesthesiology Progress Note ---
Date of Service September 30, 2024 Anesthesia Post Procedure Vital Signs Vital Signs: Temp Pulse Pulse Resp BP Pulse Ox O2 Del Method 09/30/24 18:00 36.5 C 62 18 142/82 H 97 Room Air 09/30/24 17:50 83 16 130/77 98 Oxymask 09/30/24 17:40 36.6 C 93 H 12 165/101 H 97 Oxymask 09/30/24 14:35 36.9 C 72 18 141/75 H 98 Room Air 09/30/24 07:02 36.8 C 60 16 117/64 97 Room Air 09/29/24 20:09 36.8 C 64 12 111/70 97 Room Air O2 Flow Rate 09/30/24 18:00 09/30/24 17:50 2 09/30/24 17:40 6 09/30/24 14:35 09/30/24 07:02 09/29/24 20:09 Pain Intensity Right Leg: Pain Intensity: 2 Lower Back: Pain Intensity: 2 Transfer of Care Handoff Completed per policy Notes Mental Status: alert / awake / arousable and participated in evaluation Patient Amnestic to Procedure: Yes Nausea / Vomiting: adequately controlled Pain: adequately controlled Airway Patency, RR, SpO2: stable & adequate BP & HR: stable & adequate Hydration State: stable & adequate Anesthetic Complications: no major complications apparent and Pt Satisfied with anesthetic care
[2024-09-30] MEDS ORDERED: METOCLOPRAMIDE HCL INJ 5 MG/ML 2 ML VIAL IV PRN (18:19)
[2024-09-30] MEDS ORDERED: DO NOT ADMINISTER PNEUMOCOCCAL VACCINE PRN (18:19)
[2024-09-30] MEDS ORDERED: NALOXONE HCL 0.4 MG/1 ML VIAL/CARP IV PRN (18:19)
[2024-09-30] MEDS ORDERED: MAGNESIUM HYDROXIDE SUSP 30 ML UDC PO PRN (18:19)
[2024-09-30] MEDS ORDERED: diphenhydrAMINE Capsule 25 MG CAP PO PRN (18:19)
[2024-09-30] MEDS ORDERED: SOD PHOSPHATE/SOD BIPHOSPHATE ENEMA 132 ML BTL PR PRN (18:19)
[2024-09-30] MEDS ORDERED: DO NOT ADMINISTER FLU VACCINE PRN (18:19)
[2024-09-30] MEDS ORDERED: LORazepam 0.5 MG TAB PO PRN (18:19)
[2024-09-30] MEDS ORDERED: ALUMINUM/MAGNESIUM SUSP 30 ML UDC PO PRN (18:19)
[2024-09-30] MEDS ORDERED: FAMOTIDINE 20 MG TAB PO PRN (18:19)
[2024-09-30] MEDS ORDERED: ACETAMINOPHEN 1,000 MG/100 ML VIAL IV PRN (18:19)
[2024-09-30] MEDS: LACTATED RINGER'S 1,000 ML IV SCH (18:28)
[2024-09-30] MEDS: HYDROmorphone INJ 0.5 MG/0.5 ML SYR IV PRN (18:31)
[2024-09-30] MEDS: ONDANSETRON INJ 2 MG/ML 2 ML VIAL IV PRN ×2 (20:40→20:44)
[2024-09-30] MEDS: ONDANSETRON 4 MG OD TAB PO PRN (20:40)
[2024-09-30] MEDS: DOCUSATE SODIUM/SENNA 50/8.6MG TAB PO SCH (20:42)
[2024-10-01] MEDS: POLYETHYLENE (MIRALAX) 17 GM PACK PO SCH (06:27)
[2024-10-01 07:10] LABS: Hematocrit (blood only) 38.9 % (37.0-47.0); Hemoglobin 13.0 g/dl (12.0-16.0); Immature Granulocytes # (auto) 0.10 K/uL (0.01-0.20); Immature Granulocytes % (auto) 0.6 %; Mean Corpuscular Hemoglobin 30.4 pg (25.0-34.0); Mean Corpuscular Volume 91.1 fL (80.0-100.0); Platelet Count 314 K/uL (130-400); RDW Standard Deviation 44.8 fL (36.4-46.3); Red Blood Count 4.27 M/uL (4.20-5.40); White Blood Count 17.46 K/ul (4.8-10.8)
[2024-10-01 07:26] LABS: Anion Gap 4.0 (3-11); Blood Urea Nitrogen 12.0 mg/dl (6-23); Calcium 8.7 mg/dl (8.6-10.3); Carbon Dioxide 30.0 mmol/L (21-32); Chloride 103.0 mmol/L (98-107); Creatinine Clr Calc Pharmacy 173.5 ml/min; Glucose 110.0 mg/dl (70-99(Fasting)); Potassium 4.2 mmol/L (3.5-5.1); Sodium 137.0 mmol/L (136-145)
[2024-10-01] MEDS: dexAMETHasone 6 MG in SYRINGE 0 ML IV SCH (08:02)
[2024-10-01] MEDS: ACETAMINOPHEN 500 MG TAB PO PRN (08:02)
--- NOTE | 2024-10-01 08:11 | Fluoroscopy Report ---
FL lumbar spine 2-3V CLINICAL HISTORY: L4-L5 DECOMPRESSION AND FUSION COMPARISON STUDY: None FLUOROSCOPY TIME: 14 seconds FLUOROSCOPY IMAGES: 3 EXPOSURE DOSE: 13 mGy FINDINGS: Fluoroscopy was provided for lower lumbar fusion. IMPRESSION: Intraoperative fluoroscopy. ACT 112: Negative or not required by law. Electronically signed by: Rusty Chu M.D. 10/01/2024 8:09 AM
--- NOTE | 2024-10-01 09:29 | Orthopedic Progress Note ---
Date of Service October 01, 2024 Assessment & Plan (1) Recurrent herniation of lumbar disc: Plan: At this time we will initiate physical therapy monitor her ARTEM operatively discharge home in the next few days. Admission and Anticipated Discharge Date Admission Date: September 28, 2024 Subjective Patient's back pain is controlled. She is struggling with some lightheadedness. No leg pain. Physical Exam Physical Exam: Patient is currently in bed. Discussed active testing. Appears comfortable. Results & Data Vital Signs (Past 12 Hours) Vital Signs Temp Pulse Pulse Resp BP Pulse Ox O2 Del Method 10/01/24 07:35 36.7 C 66 17 121/74 96 Room Air 10/01/24 05:51 36.7 C 54 L 14 108/67 97 Room Air 09/30/24 23:48 36.9 C 60 20 115/72 98 Room Air
[2024-10-01] MEDS: PROMETHAZINE 12.5 MG/50.5 ML BAG IV PRN (11:06)
[2024-10-01] MEDS: HYDROmorphone INJ 1 MG/ML SYRINGE IV PRN (20:24)
--- NOTE | 2024-10-02 08:40 | Orthopedic Progress Note ---
Date of Service October 02, 2024 Assessment & Plan (1) Recurrent herniation of lumbar disc: Plan: Mariella is postoperative day 2 status post lumbar decompression and fusion of L4-5. Will continue with physical therapy today. Maintain ARTEM drain. Work on aggressive bowel regimen. DVT prophylaxis is in the form of teds and SCDs. Anticipate discharge home tomorrow Admission and Anticipated Discharge Date Admission Date: September 28, 2024 Subjective Mariella is postoperative day 2 status post lumbar decompression and fusion of L4-5. She is doing well. Has some numbness in the right leg but pain is resolved. Yesterday in physical therapy ambulate 160 feet. ARTEM drain output left shift is 80 cc. She is passing flatus but no bowel movement. No new complaints. Review of Systems Review of Systems: All systems reviewed & are unremarkable except as noted in HPI & below Physical Exam Physical Exam: She sitting in bed eating breakfast in no acute distress Alert and oriented x 3 lumbar dressing is clean dry and intact with functioning ARTEM drain Strength intact bilateral lower extremities calf soft and nontender bilaterally Results & Data Vital Signs (Past 12 Hours) Vital Signs Temp Pulse Resp BP Pulse Ox O2 Del Method 10/02/24 07:18 36.7 C 60 16 105/71 95 Room Air
[2024-10-03 08:03] VITALS: PULSE 60; RESP 18; TEMP 98.1; O2SAT 97
--- NOTE | 2024-10-03 10:28 | Discharge Summary ---
Date of Service October 03, 2024 Admission HPI Per Admitting Provider 24-year-old female PMHx cauda equina syndrome who presents for acute worsening of back pain with associatedright leg numbnessfor past 10 days. States that October 2023 she had a discectomy because she was having significant back pain that required intervention. Patient was recently discharged from the hospital in August for similar symptoms with steroid taper and injections. With plan to do surgery if above plna does not work. Patient reports that symptoms have not improved. Of note, 2 MRIs of the L-spine were completed at this facility last month. MRI dated 09/08/2024 showed Modic type I endplate degeneration at L4-L5 which had mildly improved compared to 08/22/2024 and also demonstrated reactive enhancement. There was also comment of large central disc extrusion at L4-L5 again seen unchanged from 08/22/2024 and decreased in size compared to 11/10/2023. Prior L4- L5 laminectomy noted. 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 Discharge Data Allergies Allergy/AdvReac Type Severity Reaction Status Date / Time aspirin Allergy Severe Anaphylaxis Verified 09/28/24 15:56 NSAIDS (Non-Steroidal Allergy Severe Anaphylaxis Verified 09/28/24 15:56 Anti-Inflamma Consultations 09/28/24 15:42 ED Decision to Admit Stat 09/28/24 16:21 Consult Orthopedic Spine Surgery Routine 09/29/24 08:19 Consult Pain Management Routine Procedures Performed Operation Date: 09/30/24 07:00 Actual Procedures p L4-L5 Decompression and Fusion(Not Applicable) - Dinesh Velasco DO Ordered Studies 09/28/24 13:41 MR lumbar spine wo con Stat 09/30/24 13:00 FL lumbar spine 2-3V Routine Hospital Course (1) Recurrent herniation of lumbar disc: Patient presents to the hospital with recurrent disc condition severe radiculopathy with progressive neurologic deficit. Sepsis she underwent urgent decompression and fusion. She tolerated it well. Taken orthopedic floor postoperative. She progressed appropriately throughout her stay. Improvement of her pain. ARTEM drain decreasing appropriately. Good strength testing. Subsidy discharged home. Discharge orders instructions from the chart for further review. Total Time Total Time Spent Total Time Spent (In Minutes): 20 minutes Discharge Plan Discharge Items Patient Disposition: Home - Self-Care Reason For Visit: BACK PAIN Discharge Diagnosis: Recurrent lumbar disc herniation with neurologic deficit Condition on Discharge: Good Activity: As commented below Non-emergency contact: Primary Care Provider Call non-emergency contact if: you have any medication questions Follow-up/Referrals: Dinesh Velasco DO [Primary Care Provider] - Diet: Regular Addtl Attending Provider Instructions: ACTIVITY RECOMMENDATIONS: SELF CARE INSTRUCTIONS AFTER THORACIC/LUMBAR FUSIONS 1. You may walk to your tolerance. It is good exercise for your legs and back. Expect some back and intermittent leg aches and pains. 2. You may perform "counter-top" level activities (make a sandwich, carlos with a project, etc.). 3. No bending or lifting of more than 10 pounds or back twisting of any nature (roll like a log when turning in bed). 4. You may ride in a car for 20-30 minutes at a time. No driving until after your first visit with your doctor. 5. Frequent changes of position and restricting sitting to 30 minutes at a time will help limit the amount of back spasms and stiffness you may experience. 6. You may discontinue the use of ambulatory aids (cane, crutches, etc.) once your strength and confidence allow. 7. You may supervisor screen making the shower and let water strike your incision when you arrive home at least once daily. Do not take a tub bath, sit in a hot tub or go into a swimming pool until after your first recheck in the office. 8. You may resume previous diet. SPECIAL CARE INSTRUCTIONS: VERY IMPORTANT TO READ AND REVIEW A. Your surgical incision has been closed with a cosmetic suture under the skin that will dissolve in about 6 weeks. In 14 days, you can use a pair of clean scissors and cut the suture that is left outside of the skin at the ends of your incision. 1. The small skin tapes can be removed 7 days after surgery if they have not fallen off by that point. 2. You may keep the wound open to air as much as possible to promote healing after post-op day number 5 unless told otherwise by your doctor. 3. If you think the wound looks like it is becoming infected (redness or worsening drainage) and/or you are experiencing fever, chill or worsening back pain and muscle spasms, contact the office so that we may evaluate you as soon as possible. B. Complications are uncommon, but please contact us if you have any signs or symptoms of: 1. wound infection (fever higher than 102.5 degrees F, redness, separation of wound, drainage, or increasing pain from the incision) 2. blood clots in legs (pain, swelling, redness and warmth in legs) 3. urinary tract infection (fever higher than 102.5 degrees F, burning upon urination or increased frequency of urination) 4. nerve problems (inability to walk on your toes or heels, numbness, loss of bowel or bladder control) 5. any other symptoms that concern you C. Please call the office at if you have any concerns or questions about your operation or recovery. D. No smoking! Smoking drastically decreases the chance of a solid fusion. E. Do not take any anti-inflammatory medications (Indocin, Advil, Motrin, Aspirin, Naprosyn, etc.) as these may inhibit the chance of a solid fusion. Tylenol is okay to take for pain. MANAGING PAIN AFTER SPINAL SURGERY 1. Narcotic medication is intended for short-term use and will be provided for surgical pain. Surgical pain usually lasts for a period of 4-6 weeks. Narcotic medication includes Percocet, Vicodin, Darvocet, Tylenol #3 or Lortab. 2. Longer-term pain is more appropriately treated with non-narcotic medication such as Tylenol ES. 3. Muscle spasm is not appropriately treated with narcotics. Muscle relaxers such as Soma, Flexeril or Skelaxin can be used along with Tylenol ES. 4. Remember that we all live with some "aches and pains". This is not unusual or uncommon after an injury or as we get older. a. Back pain is expected and may include muscle spasms for 4 to 6 weeks after surgery. The pain should gradually improve. If the pain worsens for no apparent reason, please contact the office. b. Intermittent leg pain may also be experienced and should not be concerned about unless it worsens for no apparent reason. If so, please contact the office. 5. We will provide appropriate medication within the normal guidelines of their prescribed use. We will also be very cautious and aware of potential abuse and extended duration of patients' medication needs. a. Pain medications are for your comfort and to assist with sleep and rest so that the tissue can heal. They are not provided in order to return to normal activity and should not be used through the day. To do so or worsening pain at night can result from ongoing tissue damage and development of tolerance to the prescribed medicine. 6. Please allow 2-3 days to process refills. Prescriptions will not be mailed but must be picked up at the office. FOLLOW UP VISIT: Keep your scheduled follow-up appointment. Any questions, please call the office at . Pending Studies at Discharge: No Stand-Alone Forms: My [facility], Smoking Cessation Medications and DC Order Prescriptions: New tramadol 50 mg tablet 50 mg PO Q6H PRN (Reason: pain, moderate) Qty: 30 0RF oxycodone 5 mg tablet 5 mg PO Q6H PRN (Reason: pain) Qty: 30 0RF Continued Mirena 21 mcg/24 hr (8 yrs) 52 mg Intrauterine Device 21 mcg intrauterine CONTINOUS Discharge Orders: Discharge Order (Routine); Ordered 10/03/24 Ordered By: Dinesh Velasco Admission Data Admit Date/Time: 09/28/24 16:24 Attending Provider: Dinesh Velasco Admit Provider: Jhony Lind Primary Care Provider: Dinesh Velasco Other Providers: Gem Cisneros; Dinesh Velasco; Francisco Enriquez; Lise Ellsworth; Jared Lund; Oscar Zavaleta; Evi Akhtar
[2024-10-03 10:36] VITALS: BP 105/71
== END 2024-10-03 12:43 | disposition home or self-care (01) | DRG 402 ==
LOC: ED 11:49 → SUATTDRO 16:24 → 3W 16:24

== ENCOUNTER 2024-11-17 02:16 | Observation (INO) ==
[2024-11-17] MEDS: HYDROmorphone INJ 0.5 MG/0.5 ML SYR IV PRN ×2 (02:51→10:27)
[2024-11-17 02:53] LABS: Hematocrit (blood only) 39.9 % (37.0-47.0); Hemoglobin 13.5 g/dl (12.0-16.0); Immature Granulocytes # (auto) 0.04 K/uL (0.01-0.20); Immature Granulocytes % (auto) 0.3 %; Mean Corpuscular Hemoglobin 30.3 pg (25.0-34.0); Mean Corpuscular Volume 89.5 fL (80.0-100.0); Platelet Count 301 K/uL (130-400); RDW Standard Deviation 41.8 fL (36.4-46.3); Red Blood Count 4.46 M/uL (4.20-5.40); White Blood Count 11.50 K/ul (4.8-10.8)
--- NOTE | 2024-11-17 02:53 | Emergency Department Note ---
History of Present Illness General Chief complaint: Back Injury/Pain Stated complaint: BACK PAIN INTO LEG Time Seen by Provider: 11/17/24 02:33 History of Present Illness Maximum Pain Intensity: 9 24-year-old female PMHx cauda equina syndrome who presents for acute worsening of back pain with associated bilateral leg pain and weakness for the past few days. Patient's had back surgery a few months ago by Dr. Velasco. Patient tried tramadol with no improvement of symptoms. She cannot take NSAIDs. Patient denies loss of bowel bladder control, saddle esthesia, fever, chills, IV drug use. She states she cannot tolerate the pain. She states Dilaudid works best for her. Home Medications Medication Instructions Recorded Confirmed Type levonorgestrel 21 mcg/24 hr (up to 21 mcg intrauterine CONTINOUS 11/10/23 11/17/24 History 8 years) 52 mg intrauterine device (Mirena) tramadol 50 mg tablet 50 mg PO Q6H PRN pain, moderate 10/01/24 11/17/24 Rx #30 tabs Allergies Allergy/AdvReac Type Severity Reaction Status Date / Time aspirin Allergy Severe Anaphylaxis Verified 11/17/24 02:55 NSAIDS (Non-Steroidal Allergy Severe Anaphylaxis Verified 11/17/24 02:55 Anti-Inflamma Past Med/Surg History Problem List (Updated 11/17/24 @ 05:48 by Hollie Jim PA-C) Intractable low back pain (Acute) Recurrent herniation of lumbar disc Abnormal MRI, lumbar spine (Acute) Numbness of right lower extremity (Acute) Not currently (Acute) Medical History Opioid-induced constipation Acute on chronic back pain Lumbar disc disease Cauda equina syndrome Social History Smoking Status: Never smoker Do You Dip or Chew Tobacco: No; Hx Alcohol Use: No Hx Substance Use: No Preferred Language: Bengali Communication Ability: Effective Distance Education Director Required: No Beliefs That Will Affect Care: None Current Living Situation: Other Current Living Situation Comment: apartment Feels Safe at Home: Yes Assistive Devices: None Review of Systems A total of 10 systems reviewed and were otherwise negative Physical Exam Vital Signs Vital Signs - 24 hr 11/17/24 02:20 11/17/24 02:41 11/17/24 02:53 Temperature 36.4 C L Temperature Source Temporal Artery Scan Pulse Rate 110 H 88 Pulse Rate [Apical] Respiratory Rate 16 Blood Pressure 142/82 H Blood Pressure [Right Arm] Blood Pressure Mean 102 Blood Pressure Mean [Right Arm] Pulse Oximetry 98 96 Oxygen Delivery Method Room Air Room Air Sepsis Recent Fever Within 48 Hours No Sepsis New/Unexplained Change in Mental Status No Sepsis Action Taken by Nursing No Action Required 11/17/24 04:16 11/17/24 04:36 11/17/24 05:00 Temperature Temperature Source Pulse Rate Pulse Rate [Apical] 75 62 65 Respiratory Rate 16 16 18 Blood Pressure Blood Pressure [Right Arm] 125/74 112/63 125/67 Blood Pressure Mean Blood Pressure Mean [Right Arm] 91 79 86 Pulse Oximetry 97 96 98 Oxygen Delivery Method Room Air Room Air Room Air Sepsis Recent Fever Within 48 Hours Sepsis New/Unexplained Change in Mental Status Sepsis Action Taken by Nursing VITALS: Vitals are noted on the nurse's note and reviewed by myself. Vital signs stable. GENERAL: White female, in no acute distress, nondiaphoretic, well-developed well-nourished. SKIN: Capillary reflex less than 2 seconds. HEENT: Normocephalic. PERRLA. EOMI. Nares patent. Mucous membranes moist. Neck is supple without nuchal rigidity. HEART: Regular rate and rhythm LUNGS: Clear to auscultation bilaterally without wheezes, rales or rhonchi. No retractions or accessory muscle use. ABDOMEN: Positive bowel sounds x 4. Normal tympanic percussion. Soft, nontender, without masses or organomegaly. Simmons sign negative. No guarding or rebound tenderness. no CVA tenderness MUSCULOSKELETAL: No gross musculoskeletal defects. No thoracic or lumbar tenderness. Positive straight leg raise bilaterally. NEURO: Patient was alert and oriented to person place and time. No focal neurological deficits. Course Administered Medications Hydromorphone HCl (Hydromorphone Inj 0.5 Mg/0.5 Ml Syr) 0.5 mg IV Q15M PRN PRN Reason: Pain Stop: 12/01/24 02:40 Last Admin: 11/17/24 04:30 Dose: 0.5 mg Documented By: Admin: 11/17/24 02:51 Dose: 0.5 mg Documented By: EMB Discontinued Medications Acetaminophen (Ofirmev) 1,000 mg in 100 mls @ 400 mls/hr IV NOW STA Stop: 11/17/24 02:55 Last Infusion: 11/17/24 03:42 Dose: Infused Documented By: Admin: 11/17/24 02:54 Dose: 400 mls/hr Documented By: LATOSHA Ondansetron HCl (Ondansetron Inj 2 Mg/Ml 2 Ml Vial) 4 mg IV NOW STA Stop: 11/17/24 05:17 Last Admin: 11/17/24 05:21 Dose: 4 mg Documented By: DENAE Medical Decision Making Medical Records Attestation: I reviewed the patient's medical records. Home Medications Current Medication List: was personally reviewed by me Laboratory Data Attestation: I reviewed the patient's lab results. 11/17/24 02:41 11/17/24 02:41 Lab Results 11/17/24 Range/Units 02:41 WBC 11.50 H (4.8-10.8) K/ul RBC 4.46 (4.20-5.40) M/uL Hgb 13.5 (12.0-16.0) g/dl Hct 39.9 (37.0-47.0) % MCV 89.5 (80.0-100.0) fL MCH 30.3 (25.0-34.0) pg MCHC 33.8 (32.0-36.0) g/dL RDW Std Deviation 41.8 (36.4-46.3) fL RDW Coeff of Tamar 12.7 (11.5-14.5) % Plt Count 301 (130-400) K/uL MPV 10.3 (9.4-12.4) fL Immature Gran % (Auto) 0.3 % Neut % (Auto) 64.3 % Lymph % (Auto) 23.7 % [place] % (Auto) 9.6 % Eos % (Auto) 1.8 % Baso % (Auto) 0.3 % Neut # (Auto) 7.39 H (1.40-6.50) K/uL Lymph # (Auto) 2.72 (1.20-3.40) K/uL [place] # (Auto) 1.10 H (0.11-0.59) K/uL Eos # (Auto) 0.21 (0.00-0.50) K/uL Baso # (Auto) 0.04 (0.00-0.20) K/uL Immature Gran # (Auto) 0.04 (0.01-0.20) K/uL Sodium 136 (136-145) mmol/L Potassium 3.8 (3.5-5.1) mmol/L Chloride 104 (98-107) mmol/L Carbon Dioxide 24 (21-32) mmol/L Anion Gap 8 (3-11) BUN 12 (6-23) mg/dl Creatinine 0.53 L (0.6-1.2) mg/dl Est Cr Clr Drug Dosing 190.0 ml/min eGFR 133.19 BUN/Creatinine Ratio 22.6 H (10-20) Glucose 92 (70-99(Fasting)) mg/dl Calcium 9.2 (8.6-10.3) mg/dl Total Bilirubin 0.6 (0.2-1.0) mg/dl AST 19 (13-39) U/L ALT 14 (7-52) U/L Alkaline Phosphatase 63 (34-104) U/L Total Protein 7.5 (6.0-8.3) gm/dl Albumin 4.1 (3.4-5.0) gm/dl Globulin 3.4 (2.5-4.0) gm/dl Albumin/Globulin Ratio 1.2 (0.9-2) HCG, Qual Negative (Negative) Imaging Data Attestation: I personally reviewed and interpreted this imaging study as follows: Radiologist's Impression: Lumbar Spine MRI 11/17/24 02:42 EXAM: MR lumbar spine wo con CLINICAL HISTORY: B leg pain and weakness TECHNIQUE: Different pulse sequences were performed in different planes for the lumbar spine without contrast. Images were sent through PACs for diagnostic interpretation. COMPARISON: Compared to prior MRI study dated 09/28/2024 FINDINGS: Vertebral Alignment: [id number] Plate and screws fixation at L4 /OBX.5.1.1OBX.5.1.2 L5 vertebrae with L4-L5 disc spacer./OBX.5.1.2/OBX.5.1 Spinolaminectomy at discsctomy at L4-5 level. Straightened lumbar curve. Minimal reterolithesis of L5 over S1 vertebrae. No evidence of scoliosis is observed. Marrow signals are normal. Vertebral Bodies and Intervertebral Discs: Degenerative changes of opposing vertebral end plates at the L4-5 disc level. No vertebral body collapse, no fracture identified. No lytic or sclerotic lesions. Degenerated L4-5 and L5-S1 Intervertebral discs. [id number] analysis: T12-L1: There is no focal disc pathology, spinal canal stenosis, or neural foraminal stenosis. L1-L2: There is no focal disc pathology, spinal canal stenosis, or neural foraminal stenosis. L2-L3: There is no focal disc pathology, spinal canal stenosis, or neural foraminal stenosis. L3-L4: There is no focal disc pathology, spinal canal stenosis, or neural foraminal stenosis. L4-L5: Discectomy and decompression spinolaminectomy. L5-S1: There is A 3.3 mm annular bulge and a 6.3 mm Broad-based central, left, central, and subarticular herniation indenting the thecal sac, compromising the subarticular recesses more on the left side. There is mild spinal canal stenosis and mild bilateral neural foraminal stenosis with impingement of the emerging nerve roots. Degenerative retrolisthesis, buckled ligamenta flava, and arthropathic facet joints augment effects. Spinal Cord and Nerve Roots: Conus medullaris terminates at the L1 level without abnormality. Nerve roots appear unremarkable bilaterally. The lower thoracic spinal cord, conus medullaris, and cauda equina nerve roots are unremarkable. Soft Tissues: [id number] Operative bed subcutaneous fluid collection opposite L4 /OBX.5.1.1OBX.5.1.2 L5 vertebra, it measures 18 x 16 x 51 mm./OBX.5.1.2/OBX.5.1 IMPRESSION: 1. Compared to the prior MRI study dated 09/28/2024 [id number].[id number].5.1.12. Plate and screws fixation at L4 /OBX.5.1.1OBX.5.1.2 L5 vertebrae with L4-L5 disc spacer. Spinolaminectomy at discsctomy at L4-5 level. (New)/OBX.5.1.2/OBX.5.1 OBX.5.1OBX.5.1.13. Operative bed subcutaneous fluid collection opposite L4 /OBX.5.1.1OBX.5.1.2 L5 vertebra, It measures 18 x 16 x 51 mm. (New)/OBX.5.1.2/OBX.5.1 4. 6.3 mm Posterior protrusion of L5-S1 disc with minimal reterolithesis of L5 over S1 (Unchanged) 5. Degenerative changes of opposing vertebral end plates at the L4-5 disc level. (Unchanged) Electronically signed by King Jaquez 11-17-2024 05:27 AM MDM Narrative Prior records/ancillary studies reviewed. Triage Nursing notes reviewed. Additional history obtained from nursing. The patient's history was concerning for back pain. Differential diagnosis: Etiologies such as musculoskeletal, disc herniation, fracture, aortic disease, metastatic disease, cord compression, discitis, infection, renal colic, gastrointestinal, acute exacerbation of chronic back pain, sciatica, cauda equina, as well as others were entertained. Physical findings: As above. No focal neurologic findings noted. ER treatment provided: Dilaudid and Tylenol were ordered Solu-Medrol was ordered On reassessment the patient felt better. Diagnostics interpreted by me: The labs Independently Interpreted by myself revealed stable H&H, negative hCG Imaging studies: Imaging was reviewed and read by radiology Consultation: A consultation was placed with hospitalist. The case was discussed and diagnostics were reviewed. Patient will be evaluated for possible admission. I also Morton texted the on-call midlevel for orthopedic spine, Martha, and recommend steroids and pain control and medical admission. This appears to be consistent with intractable low back pain. Patient did not feel comfortable going home she was in too much pain and is requesting admission. Medicine was consulted case discussed. She will be evaluated for admission. By the evaluation outlined above emergent etiologies such as fracture, aortic disease, metastatic disease, infection, renal colic, gastrointestinal, cord compression, cauda equina, as well as others were deemed relatively unlikely. The pt informed about the findings as listed above. All questions were answered and pleased with the treatment. The chart was completed utilizing [employer] voice recognition software. Grammatical errors, random word insertions, pronoun errors, and incomplete sentences are an occassional consequence of this system due to software limitations, ambient noise, and hardware issues. Any formal questions or concerns about the content, text, or information contained within the body of this dictation should be directly addressed to the physician product development assistant for clarification. Impression & Plan Intractable low back pain Discharge Plan Visit Data Chief Complaint: Back Injury/Pain Stated Complaint: BACK PAIN INTO LEG ED Provider: Louise Reaves ED Midlevel Provider: Hollie Jim Discharge Problem: Intractable low back pain Patient Disposition: Being Evaluated by Hospitalist Condition: Good Forms Stand Alone Forms: [address] Prescriptions Prescriptions: No Action tramadol 50 mg tablet 50 mg PO Q6H PRN (Reason: pain, moderate) Qty: 30 0RF Mirena 21 mcg/24 hr (8 yrs) 52 mg Intrauterine Device 21 mcg intrauterine CONTINOUS Referrals Referrals: Dinesh Velasco DO [Primary Care Provider] -
[2024-11-17] MEDS: ACETAMINOPHEN 1,000 MG/100 ML VIAL IV STA (02:54)
[2024-11-17 03:09] LABS: Alanine Aminotransferase 14.0 U/L (7-52); Albumin Globulin Ratio 1.2 (0.9-2); Alkaline Phosphatase 63.0 U/L (34-104); Anion Gap 8.0 (3-11); Bilirubin,Total 0.6 mg/dl (0.2-1.0); Blood Urea Nitrogen 12.0 mg/dl (6-23); Calcium 9.2 mg/dl (8.6-10.3); Carbon Dioxide 24.0 mmol/L (21-32); Chloride 104.0 mmol/L (98-107); Creatinine Clr Calc Pharmacy 190.0 ml/min; Globulin 3.4 gm/dl (2.5-4.0); Glucose 92.0 mg/dl (70-99(Fasting)); Potassium 3.8 mmol/L (3.5-5.1); Sodium 136.0 mmol/L (136-145); Total Protein 7.5 gm/dl (6.0-8.3)
[2024-11-17 03:19] LABS: Pregnancy Test, Serum Negative (Negative)
[2024-11-17] MEDS: ONDANSETRON INJ 2 MG/ML 2 ML VIAL IV STA (05:21)
--- NOTE | 2024-11-17 05:27 | Magnetic Resonance Report ---
EXAM: MR lumbar spine wo con CLINICAL HISTORY: B leg pain and weakness TECHNIQUE: Different pulse sequences were performed in different planes for the lumbar spine without contrast. Images were sent through PACs for diagnostic interpretation. COMPARISON: Compared to prior MRI study dated 09/28/2024 FINDINGS: Vertebral Alignment: OBX.5.1OBX.5.1.1 Plate and screws fixation at L4 /OBX.5.1.1OBX.5.1.2 L5 vertebrae with L4-L5 disc spacer./OBX.5.1.2/OBX.5.1 Spinolaminectomy at discsctomy at L4-5 level. Straightened lumbar curve. Minimal reterolithesis of L5 over S1 vertebrae. No evidence of scoliosis is observed. Marrow signals are normal. Vertebral Bodies and Intervertebral Discs: Degenerative changes of opposing vertebral end plates at the L4-5 disc level. No vertebral body collapse, no fracture identified. No lytic or sclerotic lesions. Degenerated L4-5 and L5-S1 Intervertebral discs. Gtroh-yn-zhrin analysis: T12-L1: There is no focal disc pathology, spinal canal stenosis, or neural foraminal stenosis. L1-L2: There is no focal disc pathology, spinal canal stenosis, or neural foraminal stenosis. L2-L3: There is no focal disc pathology, spinal canal stenosis, or neural foraminal stenosis. L3-L4: There is no focal disc pathology, spinal canal stenosis, or neural foraminal stenosis. L4-L5: Discectomy and decompression spinolaminectomy. L5-S1: There is A 3.3 mm annular bulge and a 6.3 mm Broad-based central, left, central, and subarticular herniation indenting the thecal sac, compromising the subarticular recesses more on the left side. There is mild spinal canal stenosis and mild bilateral neural foraminal stenosis with impingement of the emerging nerve roots. Degenerative retrolisthesis, buckled ligamenta flava, and arthropathic facet joints augment effects. Spinal Cord and Nerve Roots: Conus medullaris terminates at the L1 level without abnormality. Nerve roots appear unremarkable bilaterally. The lower thoracic spinal cord, conus medullaris, and cauda equina nerve roots are unremarkable. Soft Tissues: OBX.5.1OBX.5.1.1 Operative bed subcutaneous fluid collection opposite L4 /OBX.5.1.1OBX.5.1.2 L5 vertebra, it measures 18 x 16 x 51 mm./OBX.5.1.2/OBX.5.1 IMPRESSION: 1. Compared to the prior MRI study dated 09/28/2024 OBX.5.1OBX.5.1.12. Plate and screws fixation at L4 /OBX.5.1.1OBX.5.1.2 L5 vertebrae with L4-L5 disc spacer. Spinolaminectomy at discsctomy at L4-5 level. (New)/OBX.5.1.2/OBX.5.1 OBX.5.1OBX.5.1.13. Operative bed subcutaneous fluid collection opposite L4 /OBX.5.1.1OBX.5.1.2 L5 vertebra, It measures 18 x 16 x 51 mm. (New)/OBX.5.1.2/OBX.5.1 4. 6.3 mm Posterior protrusion of L5-S1 disc with minimal reterolithesis of L5 over S1 (Unchanged) 5. Degenerative changes of opposing vertebral end plates at the L4-5 disc level. (Unchanged) Electronically signed by King Jaquez 11-17-2024 05:27 AM
[2024-11-17] MEDS: dexAMETHasone**PF** 10 MG/ML VIAL IV ONE (06:30)
--- NOTE | 2024-11-17 06:37 | History & Physical Report ---
Date of Service November 17, 2024 Assessment & Plan (1) Intractable low back pain: (2) Recurrent herniation of lumbar disc: (3) Abnormal MRI, lumbar spine: (4) Cauda equina syndrome: Plan The patient is a 24-year-old female with past medical history including recurrent herniation of lumbar disc, numbness of right lower extremity, status post spine surgery on 09/29/[address] Velasco. She presented to the emergency department after 2 days of intolerable back pain, and also notes bilateral lower extremity numbness. The pain was improved briefly by Dilaudid 0.5 mg IV. She had been using tramadol in the outpatient setting. She is referred for evaluation and treatment tonight and hospitalist service. Ortho spine surgery was consulted by the ED, and placed steroids and pain control. Intractable low back pain/status post lumbar spine surgery for cauda equina syndrome on 09/29/2024- Advised ED to give dexamethasone 10 mg IV now Dexamethasone 4 mg IV every 8 hours Acetaminophen 1 g IV every 8 hours as needed for mild pain or fever Tramadol 50 mg PO every 6 hours as needed moderate pain Dilaudid 0.5 mg IV every 3 hours as needed for severe pain Colace 100 mg p.o. twice daily MiraLAX 17 g p.o. daily as needed LR at 80 mL/h x 2 L Narcan IV as needed Consult orthopedic spine surgery Dr. Velasco History of Present Illness Chief Complaint: The patient underwent ortho spine surgery by Dr. Velasco on 09/30/2024, and had been doing well until the past couple days, when she developed severe pain with minimal movement. She presented to the emergency department for evaluation this evening, was given Dilaudid 0.5 mg IV, Tylenol 1 g IV, and was then referred for evaluation for admission Primary Care Provider: Dinesh Velasco, DO The patient is a 24-year-old female with past medical history including recurrent herniation of lumbar disc, numbness of right lower extremity, status post spine surgery on 09/29/[address] Velasco. She presented to the emergency department after 2 days of intolerable back pain, and also notes bilateral lower extremity numbness. The pain was improved briefly by Dilaudid 0.5 mg IV. She had been using tramadol in the outpatient setting. She is referred for evaluation and treatment tonight and hospitalist service. Ortho spine surgery was consulted by the ED, and placed steroids and pain control. Allergies Allergy/AdvReac Type Severity Reaction Status Date / Time aspirin Allergy Severe Anaphylaxis Verified 11/17/24 02:55 NSAIDS (Non-Steroidal Allergy Severe Anaphylaxis Verified 11/17/24 02:55 Anti-Inflamma Home Medications Medication Instructions Recorded Confirmed Type levonorgestrel 21 mcg/24 hr (up to 21 mcg intrauterine CONTINOUS 11/10/23 11/17/24 History 8 years) 52 mg intrauterine device (Mirena) tramadol 50 mg tablet 50 mg PO Q6H PRN pain, moderate 10/01/24 11/17/24 Rx #30 tabs Past Med/Surg History Problem List (Updated 11/17/24 @ 05:48 by Hollie Jim PA-C) Intractable low back pain (Acute) Recurrent herniation of lumbar disc Abnormal MRI, lumbar spine (Acute) Numbness of right lower extremity (Acute) Not currently (Acute) Medical History Opioid-induced constipation Acute on chronic back pain Lumbar disc disease Cauda equina syndrome Social History Smoking Status: Never smoker Do You Dip or Chew Tobacco: No; Hx Alcohol Use: No Hx Substance Use: No Preferred Language: French Communication Ability: 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 Beliefs That Will Affect Care: None Current Living Situation: Other Current Living Situation Comment: apartment Feels Safe at Home: Yes Assistive Devices: None Review of Systems Review of Systems: The patient denies chest pain, palpitations, shortness of breath, dyspnea on exertion, cough, lower extremity swelling, sore throat, fevers, chills, sweats, weight change, fatigue, nausea, vomiting, diarrhea , constipation, abdominal pain, pelvic pain, blood in urine or stool, dysuria, urinary frequency or urgency, lightheadedness, dizziness, headache, memory loss, loss of consciousness, rash, abnormal bruising or bleeding, focal or generalized weakness, numbness or tingling in arms, generalized arthralgias or myalgias, neck pain, or night sweats. The review of systems is otherwise negative other than for that already noted above, and at least 10 systems have been reviewed. Physical Exam Physical Exam: The patient is awake, alert and oriented 3, well developed and well nourished, normocephalic and atraumatic, lying in bed and in no acute distress while lying still HEENT--PERRL, EOMI, mucous membranes and oropharynx normal Neck--supple. No JVD. No bruits. Thyroid normal, trachea midline, no adenopathy. Heart--normal S1 and S2. No murmurs, rubs or gallops. Lungs--clear bilaterally, no respiratory distress, no accessory muscle use. Abdomen--normal bowel sounds and soft. Nontender. Nondistended, no hernias or masses, no organomegaly. Extremities--no cyanosis or clubbing. No edema. There are good distal pulses b/l. Dermatologic--normal skin turgor, normal color, no abnormal lymph nodes, no rash. Neurologic--cranial nerves II through XII grossly intact. Rheumatologic--limited exam due to back pain Psychiatric--normal affect. Results & Data Results & Data Vital Signs (Past 12 Hours) Vital Signs Temp Pulse Pulse Resp BP BP Pulse Ox 11/17/24 05:00 65 18 125/67 98 11/17/24 04:36 62 16 112/63 96 11/17/24 04:16 75 16 125/74 97 11/17/24 02:53 88 11/17/24 02:41 96 11/17/24 02:20 36.4 C L 110 H 16 142/82 H 98 O2 Del Method 11/17/24 05:00 Room Air 11/17/24 04:36 Room Air 11/17/24 04:16 Room Air 11/17/24 02:53 11/17/24 02:41 Room Air 11/17/24 02:20 Room Air Laboratory Results Laboratory Results WBC 11.50 K/ul (4.8-10.8) H 11/17/24 02:41 RBC 4.46 M/uL (4.20-5.40) 11/17/24 02:41 Hgb 13.5 g/dl (12.0-16.0) 11/17/24 02:41 Hct 39.9 % (37.0-47.0) 11/17/24 02:41 MCV 89.5 fL (80.0-100.0) 11/17/24 02:41 MCH 30.3 pg (25.0-34.0) 11/17/24 02:41 MCHC 33.8 g/dL (32.0-36.0) 11/17/24 02:41 RDW Std Deviation 41.8 fL (36.4-46.3) 11/17/24 02:41 RDW Coeff of Tamar 12.7 % (11.5-14.5) 11/17/24 02:41 Plt Count 301 K/uL (130-400) 11/17/24 02:41 MPV 10.3 fL (9.4-12.4) 11/17/24 02:41 Immature Gran % (Auto) 0.3 % 11/17/24 02:41 Neut % (Auto) 64.3 % 11/17/24 02:41 Lymph % (Auto) 23.7 % 11/17/24 02:41 Wharton % (Auto) 9.6 % 11/17/24 02:41 Eos % (Auto) 1.8 % 11/17/24 02:41 Baso % (Auto) 0.3 % 11/17/24 02:41 Neut # (Auto) 7.39 K/uL (1.40-6.50) H 11/17/24 02:41 Lymph # (Auto) 2.72 K/uL (1.20-3.40) 11/17/24 02:41 Wharton # (Auto) 1.10 K/uL (0.11-0.59) H 11/17/24 02:41 Eos # (Auto) 0.21 K/uL (0.00-0.50) 11/17/24 02:41 Baso # (Auto) 0.04 K/uL (0.00-0.20) 11/17/24 02:41 Immature Gran # (Auto) 0.04 K/uL (0.01-0.20) 11/17/24 02:41 Sodium 136 mmol/L (136-145) 11/17/24 02:41 Potassium 3.8 mmol/L (3.5-5.1) 11/17/24 02:41 Chloride 104 mmol/L (98-107) 11/17/24 02:41 Carbon Dioxide 24 mmol/L (21-32) 11/17/24 02:41 Anion Gap 8 (3-11) 11/17/24 02:41 BUN 12 mg/dl (6-23) 11/17/24 02:41 Creatinine 0.53 mg/dl (0.6-1.2) L 11/17/24 02:41 Est Cr Clr Drug Dosing 190.0 ml/min 11/17/24 02:41 eGFR 133.19 11/17/24 02:41 BUN/Creatinine Ratio 22.6 (10-20) H 11/17/24 02:41 Glucose 92 mg/dl (70-99(Fasting)) 11/17/24 02:41 Calcium 9.2 mg/dl (8.6-10.3) 11/17/24 02:41 Total Bilirubin 0.6 mg/dl (0.2-1.0) 11/17/24 02:41 AST 19 U/L (13-39) 11/17/24 02:41 ALT 14 U/L (7-52) 11/17/24 02:41 Alkaline Phosphatase 63 U/L (34-104) 11/17/24 02:41 Total Protein 7.5 gm/dl (6.0-8.3) 11/17/24 02:41 Albumin 4.1 gm/dl (3.4-5.0) 11/17/24 02:41 Globulin 3.4 gm/dl (2.5-4.0) 11/17/24 02:41 Albumin/Globulin Ratio 1.2 (0.9-2) 11/17/24 02:41 HCG, Qual Negative (Negative) 11/17/24 02:41 Impressions Lumbar Spine MRI 11/17/24 02:42 EXAM: MR lumbar spine wo con CLINICAL HISTORY: B leg pain and weakness TECHNIQUE: Different pulse sequences were performed in different planes for the lumbar spine without contrast. Images were sent through PACs for diagnostic interpretation. COMPARISON: Compared to prior MRI study dated 09/28/2024 FINDINGS: Vertebral Alignment: OBX.5.1OBX.5.1.1 Plate and screws fixation at L4 /OBX.5.1.1OBX.5.1.2 L5 vertebrae with L4-L5 disc spacer./OBX.5.1.2/OBX.5.1 Spinolaminectomy at discsctomy at L4-5 level. Straightened lumbar curve. Minimal reterolithesis of L5 over S1 vertebrae. No evidence of scoliosis is observed. Marrow signals are normal. Vertebral Bodies and Intervertebral Discs: Degenerative changes of opposing vertebral end plates at the L4-5 disc level. No vertebral body collapse, no fracture identified. No lytic or sclerotic lesions. Degenerated L4-5 and L5-S1 Intervertebral discs. Lzxgf-mv-hdsay analysis: T12-L1: There is no focal disc pathology, spinal canal stenosis, or neural foraminal stenosis. L1-L2: There is no focal disc pathology, spinal canal stenosis, or neural foraminal stenosis. L2-L3: There is no focal disc pathology, spinal canal stenosis, or neural foraminal stenosis. L3-L4: There is no focal disc pathology, spinal canal stenosis, or neural foraminal stenosis. L4-L5: Discectomy and decompression spinolaminectomy. L5-S1: There is A 3.3 mm annular bulge and a 6.3 mm Broad-based central, left, central, and subarticular herniation indenting the thecal sac, compromising the subarticular recesses more on the left side. There is mild spinal canal stenosis and mild bilateral neural foraminal stenosis with impingement of the emerging nerve roots. Degenerative retrolisthesis, buckled ligamenta flava, and arthropathic facet joints augment effects. Spinal Cord and Nerve Roots: Conus medullaris terminates at the L1 level without abnormality. Nerve roots appear unremarkable bilaterally. The lower thoracic spinal cord, conus medullaris, and cauda equina nerve roots are unremarkable. Soft Tissues: OBX.5.1OBX.5.1.1 Operative bed subcutaneous fluid collection opposite L4 /OBX.5.1.1OBX.5.1.2 L5 vertebra, it measures 18 x 16 x 51 mm./OBX.5.1.2/OBX.5.1 IMPRESSION: 1. Compared to the prior MRI study dated 09/28/2024 OBX.5.1OBX.5.1.12. Plate and screws fixation at L4 /OBX.5.1.1OBX.5.1.2 L5 vertebrae with L4-L5 disc spacer. Spinolaminectomy at discsctomy at L4-5 level. (New)/OBX.5.1.2/OBX.5.1 OBX.5.1OBX.5.1.13. Operative bed subcutaneous fluid collection opposite L4 /OBX.5.1.1OBX.5.1.2 L5 vertebra, It measures 18 x 16 x 51 mm. (New)/OBX.5.1.2/OBX.5.1 4. 6.3 mm Posterior protrusion of L5-S1 disc with minimal reterolithesis of L5 over S1 (Unchanged) 5. Degenerative changes of opposing vertebral end plates at the L4-5 disc level. (Unchanged) Electronically signed by King Jaquez 11-17-2024 05:27 AM Code Status & VTE Plan Code Status Full code VTE Prophylaxis Plan VTE Prophylaxis will be ordered: Yes PG Care Time/CCT Total # of Minutes Spent Total Time Spent with Patient: Total time spent is greater than 50% in coordination of care (as documented) at patient's floor/unit and/or counseling patient: Coding Level of Care Code 74336 INT INP/OBS CARE 3/75MIN Diagnoses Intractable low back pain M54.59 Recurrent herniation of lumbar disc M51.26 Abnormal MRI, lumbar spine R93.7 Cauda equina syndrome G83.4
[2024-11-17] MEDS ORDERED: ACETAMINOPHEN 1000 MG/100 ML IV IV PRN (09:42)
[2024-11-17] MEDS ORDERED: ALUMINUM/MAGNESIUM SUSP 30 ML UDC PO PRN (09:42)
[2024-11-17] MEDS ORDERED: MAGNESIUM HYDROXIDE SUSP 30 ML UDC PO PRN (09:42)
[2024-11-17] MEDS ORDERED: MELATONIN 3 MG TAB PO PRN (09:42)
[2024-11-17] MEDS ORDERED: ONDANSETRON INJ 2 MG/ML 2 ML VIAL IV PRN (09:42)
[2024-11-17] MEDS ORDERED: NALOXONE HCL 0.4 MG/1 ML VIAL/CARP IV PRN (09:42)
[2024-11-17] MEDS ORDERED: LEVONORGESTREL PV SCH (10:00)
[2024-11-17] MEDS: LACTATED RINGER'S 1,000 ML IV SCH (10:22)
[2024-11-17] MEDS: DOCUSATE SODIUM 100 MG CAP PO SCH (10:27)
[2024-11-17] MEDS: POLYETHYLENE (MIRALAX) 17 GM PACK PO PRN (10:27)
--- NOTE | 2024-11-17 10:44 | Orthopedic Consultation ---
Date of Consultation November 17, 2024 Assessment & Plan (1) Intractable low back pain: MRI lumbar spine available for review does demonstrate evidence of fusion L4-L5. There is continued evidence of degenerative changes L5-S1 with small central disc protrusion and hints of retrolisthesis. At this point I suspect majority her symptoms are secondary to overuse. I will obtain a CAT scan lumbar spine for further anatomic detail lumbar spine. At this point I think we can avoid any further surgical invention. Initiate physical therapy. I allow her return to classes next week. History of Present Illness Reason for Consultation: Back and leg pain Attending Physician: Everardo Szymanski MD History of Present Illness This is a 24-year-old female well-known to me the presents yesterday to the hospital with worsening back pain. She just started classes last week. She notes that there is considerable walking this week through campus from class to class. This is a marked increased in her daily activity. She began experiencing back and leg pain over the weekend to the point she had to come to the emergency room. At this time the symptoms have improved. She denies any gross weakness. She is able to ambulate without difficulty. Denies any loss of bowel or bladder function. Allergies Allergy/AdvReac Type Severity Reaction Status Date / Time aspirin Allergy Severe Anaphylaxis Verified 11/17/24 02:55 NSAIDS (Non-Steroidal Allergy Severe Anaphylaxis Verified 11/17/24 02:55 Anti-Inflamma Home Medications Medication Instructions Recorded Confirmed Type levonorgestrel 21 mcg/24 hr (up to 21 mcg intrauterine CONTINOUS 11/10/23 11/17/24 History 8 years) 52 mg intrauterine device (Mirena) tramadol 50 mg tablet 50 mg PO Q6H PRN pain, moderate 10/01/24 11/17/24 Rx #30 tabs Patient History Medical History Opioid-induced constipation Acute on chronic back pain Lumbar disc disease Cauda equina syndrome Social History Smoking Status: Never smoker Do You Dip or Chew Tobacco: No; Hx Alcohol Use: Yes Hx Substance Use: No Preferred Language: [place]an Communication Ability: Effective Pension Administrator Required: No Beliefs That Will Affect Care: None Current Living Situation: Spouse Current Living Situation Comment: apartment Feels Safe at Home: Yes Safety Concerns: Feels Safe At This Time Assistive Devices: None Physical Exam Physical Exam: On exam patient is currently in bed. She appears comfortable. The incision is healing well. There is no significant pain palpation lumbar musculature. She has excellent strength testing lower extremities. Results & Data Vital Signs (Past 12 Hours) Vital Signs Temp Pulse Pulse Pulse Resp BP BP 11/17/24 09:42 36.8 C 65 18 121/77 11/17/24 09:12 61 15 11/17/24 09:03 61 14 11/17/24 09:00 131/82 11/17/24 08:57 65 15 11/17/24 08:30 61 18 11/17/24 08:30 130/77 11/17/24 08:30 130/77 11/17/24 08:30 130/77 11/17/24 08:30 130/77 11/17/24 08:30 130/77 11/17/24 08:27 55 L 13 11/17/24 08:15 61 13 11/17/24 08:00 58 L 12 11/17/24 08:00 110/66 11/17/24 08:00 110/66 11/17/24 07:42 51 L 13 11/17/24 07:39 54 L 11 L 11/17/24 07:30 136/88 11/17/24 07:12 56 L 19 11/17/24 07:09 61 11 L 11/17/24 07:09 71 17 11/17/24 07:08 98/83 L 11/17/24 07:08 98/83 L 11/17/24 07:08 98/83 L 11/17/24 06:57 62 13 11/17/24 06:36 65 11/17/24 06:30 67 16 11/17/24 06:30 116/76 11/17/24 06:30 116/76 11/17/24 06:30 79 18 11/17/24 05:30 125/67 11/17/24 05:30 65 16 11/17/24 05:27 62 14 11/17/24 05:24 88 24 11/17/24 05:12 67 16 11/17/24 05:00 65 18 11/17/24 04:51 58 L 16 11/17/24 04:42 88 14 11/17/24 04:36 62 16 11/17/24 04:35 112/63 11/17/24 04:35 112/63 11/17/24 04:35 112/63 11/17/24 04:35 112/63 11/17/24 04:35 112/63 11/17/24 04:33 74 18 11/17/24 04:16 75 16 11/17/24 03:12 85 16 11/17/24 03:09 85 15 11/17/24 02:54 99 H 20 11/17/24 02:53 88 11/17/24 02:41 11/17/24 02:20 36.4 C L 110 H 16 142/82 H BP Pulse Ox O2 Del Method 11/17/24 09:42 96 Room Air 11/17/24 09:12 95 11/17/24 09:03 96 11/17/24 09:00 11/17/24 08:57 97 11/17/24 08:30 96 11/17/24 08:30 11/17/24 08:30 11/17/24 08:30 11/17/24 08:30 11/17/24 08:30 11/17/24 08:27 96 11/17/24 08:15 97 11/17/24 08:00 96 11/17/24 08:00 11/17/24 08:00 11/17/24 07:42 96 11/17/24 07:39 96 11/17/24 07:30 11/17/24 07:12 97 11/17/24 07:09 96 11/17/24 07:09 98/83 L 97 Room Air 11/17/24 07:08 11/17/24 07:08 11/17/24 07:08 11/17/24 06:57 95 11/17/24 06:36 11/17/24 06:30 96 11/17/24 06:30 11/17/24 06:30 11/17/24 06:30 116/76 96 Room Air 11/17/24 05:30 11/17/24 05:30 125/67 97 Room Air 11/17/24 05:27 95 11/17/24 05:24 97 11/17/24 05:12 96 11/17/24 05:00 125/67 98 Room Air 11/17/24 04:51 96 11/17/24 04:42 97 11/17/24 04:36 112/63 96 Room Air 11/17/24 04:35 11/17/24 04:35 11/17/24 04:35 11/17/24 04:35 11/17/24 04:35 11/17/24 04:33 96 11/17/24 04:16 125/74 97 Room Air 11/17/24 03:12 95 11/17/24 03:09 96 11/17/24 02:54 96 11/17/24 02:53 11/17/24 02:41 96 Room Air 11/17/24 02:20 98 Room Air
[2024-11-17] MEDS: dexAMETHasone 4 MG in SYRINGE 0 ML IV SCH (11:32)
--- NOTE | 2024-11-17 11:39 | CT Scan Report ---
EXAM: CT Lumbar Spine Without Intravenous Contrast INDICATION: Low back pain. History of fusion. TECHNIQUE: Axial computed tomography images of the lumbar spine without intravenous contrast. Sagittal and coronal reformatted images were created and reviewed. This CT exam was performed using one or more of the following dose reduction techniques: automated exposure control, adjustment of the mA and/or kV according to patient size, and/or use of iterative reconstruction technique. COMPARISON: MRI today FINDINGS: Limitations: None. Vertebrae: Intact well-seated posterior L4-L5 fusion hardware. There is straightening of the normal lumbar curvature. The bones are normally aligned and intact. See below Sacrum/coccyx: No significant abnormality noted. No acute change noted.. Discs/spinal canal/neural foramina: A metallic hardware artifact limits assessment of the canal at L4 and L5. Well-contained metallic intervertebral disc spacer L4-L5. There is to space narrowing L5-S1 with left paracentral osteophyte disc complex with narrowing of the left lateral recess. Soft tissues: No significant abnormality noted. IMPRESSION: Postoperative and degenerative changes as above. No acute abnormality. ACT 112: N/A Electronically signed by Yuliana Doyle 11-17-2024 11:39 AM
--- NOTE | 2024-11-17 12:38 | Hospitalist Progress Note ---
Date of Service November 17, 2024 Assessment & Plan (1) Intractable low back pain: Plan: Pain control measures. Parenteral steroid therapy. Limited ambulation for now. Recent lumbar surgery done in September of this year (2) Recurrent herniation of lumbar disc: Plan: Parenteral steroid therapy ordered. Lumbar CT scan ordered. Appreciate orthopedic spine surgery consultation and recommendations Plan Hopeful discharge to home on a tapering dose of oral prednisone within the next day or 2 Admission and Anticipated Discharge Date Admission Date: November 17, 2024 Subjective Alert and oriented. No distress. She has been seen by orthopedic spine surgery and conservative management is recommended. Lumbar CT scan has been ordered. Continue parenteral steroid therapy Review of Systems 2 Review of Systems: Constitutionalno fever or chills ENTno blurred vision, no double vision, no epistaxis, no sore throat Respiratoryno cough, no wheezing, no shortness of breath Cardiacno palpitations, no chest pain, no syncope Lzieth nausea, vomiting, diarrhea, melena, hematochezia GUno urinary retention, no urinary incontinence, no dysuria, no hematuria Musculoskeletallumbar pain. No muscle tenderness Skinno bruising, no rashes, no pruritus Neurono isolated weakness, no paresthesia, no weakness Psychno depression, no anxiety Physical Exam 2 Physical Exam: General-alert and oriented x3, no fever, no chills HEENT-head atraumatic and normocephalic, pupils equal and reactive to light, extraocular muscles intact Neck-no lymphadenopathy or thyromegaly, trachea midline Chest-clear to auscultation. No rales, wheezing or rhonchi Cardiac-regular rate and rhythm, normal S1 and S2 Abdomen-normal bowel sounds, no hepatosplenomegaly Musculoskeletaldiffuse lumbar discomfort and limited range of motion to palpation. No erythema or signs of infection Extremities-no cyanosis, clubbing, or edema Neuro-cranial nerves II through XII intact, motor and sensory function within normal limits, strength symmetrical, no focal deficits Psych-normal affect, normal mood Results & Data Results & Data Vital Signs (Past 12 Hours) Vital Signs Temp Pulse Pulse Pulse Resp BP BP 11/17/24 09:42 36.8 C 65 18 121/77 11/17/24 09:12 61 15 11/17/24 09:03 61 14 11/17/24 09:00 131/82 11/17/24 08:57 65 15 11/17/24 08:30 61 18 11/17/24 08:30 130/77 11/17/24 08:30 130/77 11/17/24 08:30 130/77 11/17/24 08:30 130/77 11/17/24 08:30 130/77 11/17/24 08:27 55 L 13 11/17/24 08:15 61 13 11/17/24 08:00 58 L 12 11/17/24 08:00 110/66 11/17/24 08:00 110/66 11/17/24 07:42 51 L 13 11/17/24 07:39 54 L 11 L 11/17/24 07:30 136/88 11/17/24 07:12 56 L 19 11/17/24 07:09 61 11 L 11/17/24 07:09 71 17 11/17/24 07:08 98/83 L 11/17/24 07:08 98/83 L 11/17/24 07:08 98/83 L 11/17/24 06:57 62 13 11/17/24 06:36 65 11/17/24 06:30 67 16 11/17/24 06:30 116/76 11/17/24 06:30 116/76 11/17/24 06:30 79 18 11/17/24 05:30 125/67 11/17/24 05:30 65 16 11/17/24 05:27 62 14 11/17/24 05:24 88 24 11/17/24 05:12 67 16 11/17/24 05:00 65 18 11/17/24 04:51 58 L 16 11/17/24 04:42 88 14 11/17/24 04:36 62 16 11/17/24 04:35 112/63 11/17/24 04:35 112/63 11/17/24 04:35 112/63 11/17/24 04:35 112/63 11/17/24 04:35 112/63 11/17/24 04:33 74 18 11/17/24 04:16 75 16 11/17/24 03:12 85 16 11/17/24 03:09 85 15 11/17/24 02:54 99 H 20 11/17/24 02:53 88 11/17/24 02:41 11/17/24 02:20 36.4 C L 110 H 16 142/82 H BP Pulse Ox O2 Del Method 11/17/24 09:42 96 Room Air 11/17/24 09:12 95 11/17/24 09:03 96 11/17/24 09:00 11/17/24 08:57 97 11/17/24 08:30 96 11/17/24 08:30 11/17/24 08:30 11/17/24 08:30 11/17/24 08:30 11/17/24 08:30 11/17/24 08:27 96 11/17/24 08:15 97 11/17/24 08:00 96 11/17/24 08:00 11/17/24 08:00 11/17/24 07:42 96 11/17/24 07:39 96 11/17/24 07:30 11/17/24 07:12 97 11/17/24 07:09 96 11/17/24 07:09 98/83 L 97 Room Air 11/17/24 07:08 11/17/24 07:08 11/17/24 07:08 11/17/24 06:57 95 11/17/24 06:36 11/17/24 06:30 96 11/17/24 06:30 11/17/24 06:30 11/17/24 06:30 116/76 96 Room Air 11/17/24 05:30 11/17/24 05:30 125/67 97 Room Air 11/17/24 05:27 95 11/17/24 05:24 97 11/17/24 05:12 96 11/17/24 05:00 125/67 98 Room Air 11/17/24 04:51 96 11/17/24 04:42 97 11/17/24 04:36 112/63 96 Room Air 11/17/24 04:35 11/17/24 04:35 11/17/24 04:35 11/17/24 04:35 11/17/24 04:35 11/17/24 04:33 96 11/17/24 04:16 125/74 97 Room Air 11/17/24 03:12 95 11/17/24 03:09 96 11/17/24 02:54 96 11/17/24 02:53 09/01/25 02:41 96 Room Air 11/17/24 02:20 98 Room Air Laboratory Results 11/17/24 02:41 11/17/24 02:41 PG Care Time/CCT Total # of Minutes Spent Total Time Spent with Patient: Total time spent is greater than 50% in coordination of care (as documented) at patient's floor/unit and/or counseling patient: Coding Level of Care Code 50607 SUB INP/OBS CARE 2/35MIN Diagnoses Intractable low back pain M54.59 Recurrent herniation of lumbar disc M51.26
[2024-11-18 06:23] LABS: Hematocrit (blood only) 37.5 % (37.0-47.0); Hemoglobin 12.5 g/dl (12.0-16.0); Immature Granulocytes # (auto) 0.12 K/uL (0.01-0.20); Immature Granulocytes % (auto) 0.8 %; Mean Corpuscular Hemoglobin 29.9 pg (25.0-34.0); Mean Corpuscular Volume 89.7 fL (80.0-100.0); Platelet Count 281 K/uL (130-400); RDW Standard Deviation 41.3 fL (36.4-46.3); Red Blood Count 4.18 M/uL (4.20-5.40); White Blood Count 15.23 K/ul (4.8-10.8)
[2024-11-18 06:47] LABS: Alanine Aminotransferase 11.0 U/L (7-52); Albumin Globulin Ratio 1.3 (0.9-2); Alkaline Phosphatase 43.0 U/L (34-104); Anion Gap 6.0 (3-11); Bilirubin,Total 0.5 mg/dl (0.2-1.0); Blood Urea Nitrogen 8.0 mg/dl (6-23); Calcium 9.4 mg/dl (8.6-10.3); Carbon Dioxide 26.0 mmol/L (21-32); Chloride 104.0 mmol/L (98-107); Creatinine Clr Calc Pharmacy 218.9 ml/min; Globulin 2.9 gm/dl (2.5-4.0); Glucose 143.0 mg/dl (70-99(Fasting)); Magnesium 1.9 mg/dl (1.7-2.4); Potassium 4.0 mmol/L (3.5-5.1); Sodium 136.0 mmol/L (136-145); Total Protein 6.7 gm/dl (6.0-8.3)
[2024-11-18 07:14] VITALS: BP 111/71; PULSE 60; RESP 18; TEMP 97.7; O2SAT 96
--- NOTE | 2024-11-18 10:17 | Orthopedic Progress Note ---
Date of Service November 18, 2024 Assessment & Plan (1) Intractable low back pain: Plan: CAT scan reviewed. This demonstrated calcification of the disc protrusion L5- S1. This is a good sign and indicates that it is moving towards stability. Recommend physical therapy today and discharge when pain controlled. Admission and Anticipated Discharge Date Admission Date: November 17, 2024 Subjective Back and leg pain improving. She has been ambulating in the room. Physical Exam Physical Exam: Patient appears comfortable. Has good strength testing. Results & Data Vital Signs (Past 12 Hours) Vital Signs Temp Pulse Resp BP Pulse Ox O2 Del Method 11/18/24 07:11 36.5 C 60 18 111/71 96 Room Air 11/17/24 22:46 36.7 C 84 16 119/75 94 Room Air Queries Orthopedic Spine Obesity: Yes
--- NOTE | 2024-11-18 11:31 | Discharge Summary ---
Discharge Summary Date of Service November 18, 2024 Principal Dx & Hospital Course #1 = Principal Diagnosis (1) Intractable low back pain: Treated while hospitalized with pain control measures and parenteral steroid therapy. Recent lumbar surgery done in September of this year. Appreciate orthopedic spine consult and recommendations (2) Recurrent herniation of lumbar disc: Treated while hospitalized with intravenous dexamethasone. Lumbar MRI and lumbar CT scan were done while hospitalized. No indication found for repeat surgical intervention. Appreciate orthopedic spine surgery consultation and recommendations Plan Home today, November 18, on prednisone tapering dose. She will use tramadol as needed for pain. She will see orthopedic spine surgery for follow-up as soon as possible Admission HPI Per Admitting Provider The patient is a 24-year-old female with past medical history including recurrent herniation of lumbar disc, numbness of right lower extremity, status post spine surgery on 09/29/[address] Velasco. She presented to the emergency department after 2 days of intolerable back pain, and also notes bilateral lower extremity numbness. The pain was improved briefly by Dilaudid 0.5 mg IV. She had been using tramadol in the outpatient setting. She is referred for evaluati on and treatment tonight and hospitalist service. Ortho spine surgery was consulted by the ED, and placed steroids and pain control. Discharge Exam General-alert and oriented x3, no fever, no chills HEENT-head atraumatic and normocephalic, pupils equal and reactive to light, extraocular muscles intact Neck-no lymphadenopathy or thyromegaly, trachea midline Chest-clear to auscultation. No rales, wheezing or rhonchi Cardiac-regular rate and rhythm, normal S1 and S2 Abdomen-normal bowel sounds, no hepatosplenomegaly Musculoskeletaldiffuse lumbar discomfort and limited range of motion to palpation. No erythema or signs of infection Extremities-no cyanosis, clubbing, or edema Neuro-cranial nerves II through XII intact, motor and sensory function within normal limits, strength symmetrical, no focal deficits Psych-normal affect, normal mood Discharge Plan Discharge Items Patient Disposition: Home - Self-Care Reason For Visit: INTRACTABLE POST OP LOW BACK PAIN Discharge Diagnosis: Postoperative lumbar pain Condition on Discharge: Good Activity: As commented below Activity Comment: Avoid heavy lifting or overexertion until cleared by orthopedic spine surge Non-emergency contact: Primary Care Provider and Surgeon Call non-emergency contact if: you have any medication questions and your symptoms worsen Follow-up/Referrals: Dinesh Velasco, [Primary Care Provider] - Diet: Regular Addtl Attending Provider Instructions: Take prednisone in a tapering dose fashion as directed. Use tramadol as needed for pain. See orthopedic spine surgeon for follow-up as scheduled Pending Studies at Discharge: No Stand-Alone Forms: [facility], Sm[facility] Cess[facility] Medications and DC Order Prescriptions: New tramadol 50 mg Tablet 50 mg PO Q6H PRN (Reason: pain) Qty: 20 0RF prednisone 10 mg tablet See Rx Instructions .ROUTE .COMPLEX Qty: 12 0RF Rx Instructions: 10 mg orally 3 times a day for 2 days, then 10 mg twice a day for 2 days, then 10 mg once a day for 2 days, then stop Continued Mirena 21 mcg/24 hr (8 yrs) 52 mg Intrauterine Device 21 mcg intrauterine CONTINOUS Discontinued tramadol 50 mg tablet 50 mg PO Q6H PRN (Reason: pain, moderate) Qty: 30 0RF Discharge Orders: Discharge Order (Routine); Ordered 11/18/24 Ordered By: Micah Francisco Admission Data Admit Date/Time: 11/17/24 06:28 Attending Provider: Micah Francisco Admit Provider: Everardo Szymanski Primary Care Provider: Dinesh Velasco Other Providers: Dinesh Velasco; Everardo Szymanski Hospital Stay Data Consultations 11/17/24 05:43 ED Decision to Admit Stat 11/17/24 06:28 Consult Orthopedic Spine Surgery Routine Diagnostic Imagining Performed 11/17/24 02:42 MR lumbar spine wo con Stat 11/17/24 10:42 CT lumbar spine wo con Urgent Pending Results Patient Have Any Pending Studies at Discharge: No Discharge Instructions Given to Patient (Per Discharging Provider) Take prednisone in a tapering dose fashion as directed. Use tramadol as needed for pain. See orthopedic spine surgeon for follow-up as scheduled Total Time Total Time Spent Total Time Spent (In Minutes): 45 minutes Coding Level of Care Code 70338 INP/OBS DISCH >30 MIN Diagnoses Intractable low back pain M54.59 Recurrent herniation of lumbar disc M51.26
== END 2024-11-18 13:32 | disposition home or self-care (01) ==
LOC: SUATTDRO → ED 02:16 → 3W 02:16 → SUATTDRO 06:28 → 3W 09:07